=== PATIENT | female | born 1940 | race Caucasian/White ===

== ENCOUNTER 2023-08-09 17:12 | Inpatient (IN) | payer MEDICARE, OTHER ==
[~2023-08-09] VITALS: Ht 165.1 cm; Wt 55.7 kg
[2023-08-09 17:55] VITALS: PULSE 79; RESP 18; O2SAT 96
[2023-08-09 17:57] LABS: Basophils # (auto) 0.1 10 ^3/uL (0-0.2); Basophils % (auto) 0.5 % (0.0-2.0); Monocytes % (auto) 5.8 % (0.0-12.0)
[2023-08-09 17:59] LABS: Eosinophils # (auto) 0.2 10 ^3/uL (0-0.8); Eosinophils % (auto) 1.4 % (0.0-7.0); Hematocrit 43.3 % (36.0-46.0); Hemoglobin 13.8 g/dL (12.2-16.2); Lymphocytes # (auto) 9.3 10 ^3/uL (0.4-5.4); Mean Corpuscular Hemoglobin 27.1 pg (28.0-32.0); Mean Corpuscular Hgb Conc. 31.9 g/dL (32.0-36.0); Mean Corpuscular Volume 85.1 fL (80.0-100.0); Neutrophils # (auto) 6.6 10 ^3/uL (1.6-8.6); Neutrophils % (auto) 38.3 % (37.0-80.0); Nucleated Red Blood Cells % 0.2 %; Red Blood Cells 5.09 10^6/uL (4.0-5.20); Red Cell Distribution Width 19.1 % (11.8-14.3); White Blood Cell 17.3 10^3/uL (4.4-10.8)
[2023-08-09 18:12] LABS: Alanine Aminotransferase 18 U/L (7-40); Albumin 4.5 g/dL (3.2-4.8); Alkaline Phosphatase 34 U/L (46-116); Anion Gap 11 (5-15); Aspartate Aminotransferase 20 U/L (13-40); BUN/Creatinine Ratio 22.7 (10.0-20.0); Blood Urea Nitrogen 22 mg/dL (9-23); Calcium 9.9 mg/dL (8.7-10.4); Carbon Dioxide 22 mmol/L (20-30); Chloride 102 mmol/L (98-107); Glucose 103 mg/dL (74-106); INR 1.02 (0.9-1.15); Magnesium 1.5 mg/dL (1.6-2.6); Partial Thromboplastin Time 25.2 SEC (24.5-34.5); Potassium 3.7 mmol/L (3.5-5.1); Prothrombin Time 10.7 sec (9.3-11.8); Sodium 135 mmol/L (136-145)
[2023-08-09 18:13] LABS: Bilirubin, Total 0.4 mg/dL (0.2-1.0); Total Protein 6.9 g/dL (5.7-8.2)
[2023-08-09 19:30] VITALS: PULSE 76; RESP 13; O2SAT 96
[2023-08-09] MEDS ORDERED: ACETAMINOPHEN 325 MG TAB PO PRN (22:15)
[2023-08-09] MEDS ORDERED: MORPHINE SULFATE INJ 2 MG/ml SYRG IV PRN (22:15)
[2023-08-09] MEDS ORDERED: NITROGLYCERIN 0.4 MG SL TAB SL PRN (22:15)
[2023-08-09] MEDS ORDERED: DOCUSATE SOD 100 MG CAP PO PRN (22:15)
[2023-08-09] MEDS ORDERED: ONDANSETRON HCL 4 MG/2 ML VIAL IV PRN (22:15)
[2023-08-09] MEDS ORDERED: IPRATROPIUM BROM 0.5 MG/2.5ML INH SOL NEB PRN (22:30)
[2023-08-09] MEDS ORDERED: DEXTROSE (50%) 50ML SYRG IV PRN (22:30)
[2023-08-09] MEDS ORDERED: ALBUTEROL SULF 2.5 MG/0.5ML(0.5%) NEB SOLN NEB PRN (22:30)
[2023-08-09] MEDS ORDERED: METO-159 PO (22:43)
[2023-08-09] MEDS ORDERED: ATOR40TA52 PO (22:43)
[2023-08-09] MEDS ORDERED: AMLO1TAB23 PO (22:43)
[2023-08-09] MEDS ORDERED: PANT40T PO (22:43)
[2023-08-09] MEDS ORDERED: EZET-10 PO (22:43)
[2023-08-09 22:47] VITALS: BP 200/86; PULSE 80; RESP 19; TEMP 97.6; O2SAT 94
[2023-08-09] MEDS: cefTRIAXone 1GM/50ML D5W 50 ML IV ONE (23:04)
[2023-08-09] MEDS: METHOCARBAMOL 500 MG TAB PO SCH (23:05)
[2023-08-10 01:31] LABS: Urine Bacteria FEW /hpf (None Seen); Urine Blood Negative /uL (Negative); Urine Clarity Clear (Clear); Urine Color Colorless (Yellow); Urine Hyaline Cast FEW /lpf (0 - 2); Urine Protein, UAD 2+ (Negative); Urine Urobilinogen Normal (Negative); Urine WBC 9 /hpf (0 - 5); Urine pH 5.5 (5.0-8.0)
[2023-08-10] MEDS: HYDROcodone-ACET 10/325MG TAB PO PRN (04:11)
[2023-08-10 05:24] LABS: Basophils # (auto) 0.1 10 ^3/uL (0-0.2); Basophils % (auto) 0.6 % (0.0-2.0); Eosinophils # (auto) 0.2 10 ^3/uL (0-0.8); Eosinophils % (auto) 1.4 % (0.0-7.0); Hematocrit 36.9 % (36.0-46.0); Hemoglobin 11.9 g/dL (12.2-16.2); Lymphocytes # (auto) 6.7 10 ^3/uL (0.4-5.4); Lymphocytes % (auto) 50.5 % (10.0-50.0); Mean Corpuscular Hemoglobin 27.2 pg (28.0-32.0); Mean Corpuscular Hgb Conc. 32.2 g/dL (32.0-36.0); Mean Corpuscular Volume 84.4 fL (80.0-100.0); Monocytes # (auto) 0.8 10 ^3/uL (0-1.3); Monocytes % (auto) 5.7 % (0.0-12.0); Neutrophils # (auto) 5.5 10 ^3/uL (1.6-8.6); Neutrophils % (auto) 41.8 % (37.0-80.0); Nucleated Red Blood Cells % 0.1 %; Red Blood Cells 4.37 10^6/uL (4.0-5.20); Red Cell Distribution Width 18.3 % (11.8-14.3); White Blood Cell 13.3 10^3/uL (4.4-10.8)
[2023-08-10 05:47] LABS: Alanine Aminotransferase 12 U/L (7-40); Albumin 3.6 g/dL (3.2-4.8); Alkaline Phosphatase 26 U/L (46-116); Anion Gap 8 (5-15); Aspartate Aminotransferase 14 U/L (13-40); BUN/Creatinine Ratio 19.5 (10.0-20.0); Blood Urea Nitrogen 15 mg/dL (9-23); Calcium 8.6 mg/dL (8.7-10.4); Carbon Dioxide 23 mmol/L (20-30); Chloride 106 mmol/L (98-107); Glucose 144 mg/dL (74-106); Potassium 3.5 mmol/L (3.5-5.1); Sodium 137 mmol/L (136-145)
[2023-08-10 05:48] LABS: Bilirubin, Total 0.5 mg/dL (0.2-1.0); Total Protein 5.7 g/dL (5.7-8.2)
[2023-08-10 05:59] LABS: Triglycerides 145 mg/dL (< 150)
[2023-08-10 06:00] LABS: LDL Cholesterol 55 mg/dL (< 100)
[2023-08-10 06:01] LABS: Cholesterol 119 mg/dL (< 200); HDL Cholesterol 42 mg/dL (40-59)
[2023-08-10] MEDS: ACCU-CHEK COMFORT CURVE STRIP VI SCH (06:16)
[2023-08-10] MEDS: InsuLIN REG 1unit/0.01ml Soln (100units/ml) SC SCH (06:22)
[2023-08-10] MEDS: cefTRIAXone 1GM/50ML D5W 50 ML IV SCH (09:52)
[2023-08-10] MEDS: EZETIMIBE 10 MG PO SCH (10:00)
[2023-08-10] MEDS ORDERED: PATIENTS OWN MEDICATION (Metoprolol Tartrate 1 TAB) PO SCH (10:00)
[2023-08-10] MEDS ORDERED: PATIENTS OWN MEDICATION (Atorvastatin Calcium 1 TAB) PO SCH (10:00)
[2023-08-10] MEDS ORDERED: PATIENTS OWN MEDICATION (Amlodipine Besylate 1 TAB) PO SCH (10:00)
[2023-08-10 10:08] VITALS: O2SAT 97
[2023-08-10] MEDS: ATORVASTATIN 20 MG TAB PO SCH (10:25)
[2023-08-10] MEDS: METOPROLOL TARTRATE 50 MG TAB PO SCH (10:26)
[2023-08-10] MEDS: PANTOPRAZOLE 40 MG TAB PO SCH (10:26)
[2023-08-10] MEDS: amLODIPine BESYLATE 5 MG TAB PO SCH (10:27)
[2023-08-10 18:11] LABS: Basophils # (auto) 0 10 ^3/uL (0-0.2); Basophils % (auto) 0.4 % (0.0-2.0); Eosinophils # (auto) 0.1 10 ^3/uL (0-0.8); Hematocrit 37.9 % (36.0-46.0); Hemoglobin 12.2 g/dL (12.2-16.2); Lymphocytes # (auto) 5.6 10 ^3/uL (0.4-5.4); Lymphocytes % (auto) 44.8 % (10.0-50.0); Mean Corpuscular Hemoglobin 26.8 pg (28.0-32.0); Mean Corpuscular Hgb Conc. 32.3 g/dL (32.0-36.0); Monocytes # (auto) 0.7 10 ^3/uL (0-1.3); Neutrophils % (auto) 47.8 % (37.0-80.0); Nucleated Red Blood Cells % 0.1 %; Red Blood Cells 4.57 10^6/uL (4.0-5.20); Red Cell Distribution Width 19.1 % (11.8-14.3); White Blood Cell 12.5 10^3/uL (4.4-10.8)
[2023-08-10 19:20] VITALS: PULSE 85; RESP 18; O2SAT 93
[2023-08-10 22:05] VITALS: O2SAT 94
[2023-08-11] VITALS (10 sets, daily range): BP systolic 142–164; BP diastolic 62–90; PULSE 68–96; RESP 18–20; TEMP 97.4–98.2; O2SAT 94–98
[2023-08-11] MEDS: hydrALAZINE HCL 20 MG/ML VL IV ONE (00:26)
[2023-08-11] MEDS: GABAPENTIN 100 MG CAP PO ONE (00:59)
[2023-08-11] MEDS ORDERED: FLUT1AER7 (05:21)
[2023-08-11] MEDS ORDERED: METF-370 PO (05:21)
[2023-08-11] MEDS ORDERED: ALBU108A5 INH (05:21)
[2023-08-11] MEDS ORDERED: METH-1182 PO (05:21)
[2023-08-11] MEDS ORDERED: HYDR-4072 PO (05:21)
[2023-08-11] MEDS ORDERED: CLOP75TA70 PO (05:21)
[2023-08-11 06:16] LABS: Chloride 101 mmol/L (98-107); Potassium 3.4 mmol/L (3.5-5.1); Sodium 137 mmol/L (136-145)
[2023-08-11 06:17] LABS: Anion Gap 9 (5-15); Calcium 10.7 mg/dL (8.5-10.1); Carbon Dioxide 27 mmol/L (20-30)
[2023-08-11 06:22] LABS: BUN/Creatinine Ratio 14.1 (10.0-20.0); Blood Urea Nitrogen 13 mg/dL (9-23); Glucose 164 mg/dL (74-106)
[2023-08-11 08:49] LABS: White Blood Cell 16.5 10^3/uL (4.4-10.8)
[2023-08-11 08:51] LABS: Hematocrit 42.2 % (36.0-46.0); Hemoglobin 13.3 g/dL (12.2-16.2); Mean Corpuscular Hemoglobin 26.8 pg (28.0-32.0); Mean Corpuscular Hgb Conc. 31.6 g/dL (32.0-36.0); Mean Corpuscular Volume 84.8 fL (80.0-100.0); Red Blood Cells 4.97 10^6/uL (4.0-5.20); Red Cell Distribution Width 19.2 % (11.8-14.3)
[2023-08-11 09:23] LABS: Band Neutrophils % (manual) 0; Basophils % (manual) 0 (0.0-2.0); Blast Cells 0; Eosinophils % (manual) 2 (0-7); Lymphocytes % (manual) 59 (10.0-50.0); Metamyelocytes % 0; Monocytes % (manual) 4 (0-12); Myelocytes % 0; Platelet Estimate Adequate; Promyelocytes % 0; RBC Morphology Normal; Reactive Lymphocytes 6
[2023-08-11] MEDS: POTASSIUM CHL 20 Meq TABLET PO ONE (09:23)
[2023-08-11] MEDS: ASPirin 81 mg TAB PO SCH (09:24)
[2023-08-11] MEDS: PANTOPRAZOLE 40 MG TAB PO SCH (09:25)
[2023-08-11] MEDS: CLOPIDOGREL BISULFATE 75 MG TAB PO SCH (09:25)
[2023-08-12 05:00] VITALS: BP 187/80; PULSE 71; RESP 18; TEMP 98.2; O2SAT 96
[2023-08-12 06:05] LABS: Basophils # (auto) 0.1 10 ^3/uL (0-0.2); Eosinophils # (auto) 0.2 10 ^3/uL (0-0.8); Monocytes # (auto) 0.8 10 ^3/uL (0-1.3)
[2023-08-12 06:09] LABS: Basophils % (auto) 0.7 % (0.0-2.0); Eosinophils % (auto) 1.8 % (0.0-7.0); Hematocrit 38.9 % (36.0-46.0); Hemoglobin 12.5 g/dL (12.2-16.2); Lymphocytes # (auto) 6.2 10 ^3/uL (0.4-5.4); Lymphocytes % (auto) 52.1 % (10.0-50.0); Mean Corpuscular Hemoglobin 27.3 pg (28.0-32.0); Mean Corpuscular Hgb Conc. 32.2 g/dL (32.0-36.0); Mean Corpuscular Volume 84.7 fL (80.0-100.0); Monocytes % (auto) 6.8 % (0.0-12.0); Neutrophils # (auto) 4.6 10 ^3/uL (1.6-8.6); Neutrophils % (auto) 38.6 % (37.0-80.0); Nucleated Red Blood Cells % 0.2 %; Red Blood Cells 4.59 10^6/uL (4.0-5.20); Red Cell Distribution Width 18.9 % (11.8-14.3); White Blood Cell 11.8 10^3/uL (4.4-10.8)
[2023-08-12 06:20] LABS: Anion Gap 8 (5-15); Carbon Dioxide 25 mmol/L (20-30); Chloride 105 mmol/L (98-107); Potassium 3.8 mmol/L (3.5-5.1); Sodium 138 mmol/L (136-145)
[2023-08-12 06:21] LABS: Calcium 9.7 mg/dL (8.7-10.4)
[2023-08-12] MEDS: hydrALAZINE HCL 20 MG/ML VL IV ONE (06:23)
[2023-08-12 06:26] LABS: Blood Urea Nitrogen 15 mg/dL (9-23); Glucose 176 mg/dL (74-106)
[2023-08-12 06:27] LABS: Magnesium 1.6 mg/dL (1.6-2.6)
[2023-08-12] MEDS: ACETAMINOPHEN 325 MG TAB PO PRN (06:28)
[2023-08-12 08:00] VITALS: BP 116/63; PULSE 75; PULSE 87; RESP 15; TEMP 98; O2SAT 93
[2023-08-12 09:06] VITALS: BP 116/63; PULSE 87; RESP 15; TEMP 98; O2SAT 93
[2023-08-12] MEDS: MAGNESIUM OXIDE 400 MG TAB PO ONE (09:42)
[2023-08-12] MEDS: LOSARTAN POTASSIUM 25 MG TAB PO SCH (09:51)
[2023-08-12] MEDS ORDERED: CEPH500C PO (10:16)
[2023-08-12 10:34] VITALS: PULSE 83; RESP 16; O2SAT 99
[2023-08-12] MEDS: ALBUTEROL SULF 2.5 MG/0.5ML(0.5%) NEB SOLN NEB PRN (10:34)
[2023-08-12] MEDS: IPRATROPIUM BROM 0.5 MG/2.5ML INH SOL NEB PRN (10:34)
[2023-08-12 10:44] VITALS: PULSE 74; RESP 17; O2SAT 100
[2023-08-12 12:47] VITALS: BP 137/68; PULSE 67; RESP 16; TEMP 98; O2SAT 96
== END 2023-08-12 13:21 | disposition home or self-care (01) | DRG 65 ==
LOC: ER 17:12 → TELE 22:08 → TELE-WESTW 22:08
PROVIDERS: ADMIT Internal Medicine Geriatric Medicine; ATTEND Emergency Medicine
DX: I63.9 Cerebral infarction, unspecified (principal); I16.1 Hypertensive emergency; I69.351 Hemiplegia and hemiparesis following cerebral infarction affecting right dominant side; N39.0 Urinary tract infection, site not specified; D72.829 Elevated white blood cell count, unspecified; I25.10 Atherosclerotic heart disease of native coronary artery without angina pectoris; J44.9 Chronic obstructive pulmonary disease, unspecified; R29.703 NIHSS score 3; G89.29 Other chronic pain; E11.9 Type 2 diabetes mellitus without complications; M54.9 Dorsalgia, unspecified; F17.200 Nicotine dependence, unspecified, uncomplicated; E78.5 Hyperlipidemia, unspecified; H91.92 Unspecified hearing loss, left ear; I10 Essential (primary) hypertension; Z88.8 Allergy status to other drugs, medicaments and biological substances; Z91.041 Radiographic dye allergy status; Z79.02 Long term (current) use of antithrombotics/antiplatelets; Z79.82 Long term (current) use of aspirin; Z79.899 Other long term (current) drug therapy
CPT/HCPCS: 36415; 70450; 70551; 71045; 80048; 80053; 80061; 81001; 82962; 83036; 83605; 83735; 83880; 84443; 84484; 85007; 85025; 85027; 85610; 85730; 87040; 87081; 87086; 93005; 93306; 93886; 94640; 95819; 96374; 97163; G0378; J1815

== ENCOUNTER 2024-07-13 10:59 | Inpatient (IN) | payer MEDICARE, OTHER ==
[~2024-07-13] VITALS: Ht 165.1 cm; Wt 94.8 kg
[~2024-07-13 10:59] MED LIST: ALBU108A5 INH; AMLO1TAB23 PO; ATOR40TA52 PO; CEPH500C PO; CLOP75TA70 PO; EZET-10 PO; FLUT1AER7; HYDR-4072 PO; METF-370 PO; METH-1182 PO; METO-159 PO; PANT40T PO
--- NOTE | 2024-07-13 11:11 | ECG ---
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
--- NOTE | 2024-07-13 11:21 | ED.PDOC ---
History of Present Illness HPI Comments 83-year-old female presents with a chief complaint of SOB x 2 weeks with associated cough. Patient reports that she has been having SOB increasingly over the past x 2 weeks. Patient is sating at 81% on room air and does not use supplemental oxygen. Patient was placed on 2L/NC in triage. Patient is able to speak in full complete sentences at this time. Patient has no sick contacts at this time at home. No other symptoms or modifying factors present at this time. Time Seen by MD: 11:09 Primary Care Provider: Gregory JALLOH) Reviewed Notes: Nurses Notes, Medications, Allergies Allergies: Coded Allergies: Enalapril (Verified Allergy, Severe, 08/09/23) Iodine (Verified Allergy, Severe, 08/09/23) Home Meds Active Scripts Cephalexin Monohydrate (Cephalexin) 500 Mg Cap, 1 CAP PO TID, #15 CAP Prov:ANETTE SAUER MD 08/12/23 Reported Medications Fluticasone-Salmeterol (Wixela Inhub 500-50 Mcg/Dose) 1 Aer Aer 08/11/23 Clopidogrel Bisulfate (CLOPIDOGREL) 75 Mg Tab, 1 TAB PO DAILY 08/11/23 Methocarbamol (Methocarbamol) 750 Mg Tab, 1 TAB PO Q6HPRN PRN for FOR MUSCLE SPASM 08/11/23 Albuterol Sulfate (Albuterol Sulfate Hfa) 108 Mcg/Act Aer, INH 08/11/23 Metformin Hydrochloride (Metformin Hcl) 500 Mg Tab, 2 TAB PO BID 08/11/23 Hydrocodone-Acetaminophen (Hydrocodone/Acetaminophen 10-325 mg) 1 Tab Tab, 1 TAB PO Q4HP PRN for PAIN SCALE 7 THRU 10 08/11/23 Pantoprazole Sodium Sesquihydr (Pantoprazole Sodium) 40 Mg Tab, 1 TAB PO DAILY 08/09/23 Atorvastatin Calcium (ATORVASTATIN CALCIUM) 40 Mg Tab, 1 TAB PO DAILY 08/09/23 Ezetimibe (Ezetimibe) 10 Mg Tab, 1 TAB PO DAILY 08/09/23 Metoprolol Tartrate (Metoprolol Tartrate) 100 Mg Tab, 1 TAB PO BID 08/09/23 Amlodipine Besylate (Amlodipine Besylate) 10 Mg Tab, 1 TAB PO DAILY 08/09/23 Information Source: Patient Mode of Arrival: Ambulatory Severity: Moderate Timing: Weeks Duration: Since onset Prehospital treatment: None Past Medical History PAST MEDICAL HISTORY: CAD, COPD, CVA 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 Pertinent ACOUSTIC SENSOR OPERATOR History Family History Family History: Unknown Social History Smoker: Non-Smoker Alcohol: Denies ETOH Use Drugs: Denies Drug Use Lives In: Home Constitutional: denies: chills, diaphoresis, fatigue, fever, malaise, sweats, weakness, others EENTM: denies: blurred vision, double vision, ear bleeding, ear discharge, ear drainage, ear pain, ear ringing, eye pain, eye redness, hearing loss, mouth pain, mouth swelling, nasal discharge, nose bleeding, nose congestion, nose pain, photophobia, tearing, throat pain, throat swelling, voice changes, others Respiratory: reports: cough, shortness of breath; denies: hemoptysis, orthopnea, SOB at rest, SOB with excertion, stridor, wheezing, others Cardiovascular: denies: chest pain, dizzy spells, diaphoresis, Dyspnea on exertion, edema, irregular heart beat, left arm pain, lightheadedness, palpitations, PND, syncope, others Gastrointestinal: denies: abdomen distended, abdominal pain, blood streaked bowels, constipated, diarrhea, dysphagia, difficulty swallowing, hematemesis, melena, nausea, poor appetite, poor fluid intake, rectal bleeding, rectal pain, vomiting, others Genitourinary: denies: abnormal vagina bleeding, burning, dyspareunia, dysuria, flank pain, frequency, hematuria, incontinence, pain, , vagina discharge, urgency, others Neurological: denies: dizziness, fainting, headache, left sided numbness, left sided weakness, numbness, paresthesia, pre-existing deficit, right sided numbness, right sided weakness, seizure, speech problems, tingling, tremors, weakness, others Musculoskeletal: denies: back pain, gout, joint pain, joint swelling, muscle pain, muscle stiffness, neck pain, others Integumetry: denies: bruises, change in color, change in hair/nails, dryness, laceration, lesions, lumps, rash, wounds, others Allergic/Immunocompromised: denies: Difficulty Healing, Frequent Infections, Hives, Itching, others Hematologic/Lymphatic: denies: anemia, blood clots, easy bleeding, easy bruising, swollen glands, others Endocrine: denies: excessive hunger, excessive sweating, excessive thirst, excessive urination, flushing, intolerance to cold, intolerance to heat, unexplained weight gain, unexplained weight loss, others Psychiatric: denies: anxiety, bipolar disorder, depression, hopeless, panic disorder, schizophrenia, sleepless, suicidal, others All Other Systems: Reviewed and Negative Physical Exam General Appearance: Moderate Distress HEENT: Normal ENT Inspection, Pharynx Normal, TMs Normal Neck: Full Range of Motion, Non-Tender, Normal, Normal Inspection Respiratory: Chest Non-Tender, Decreased Breath Sounds, No Accessory Muscle Use, Rales, Respiratory Distress Cardiovascular: No Edema, No JVD, No Murmur, No Gallop, Normal Peripheral Pulses, Regular Rate/Rhythm Breast Exam: Deferred Gastrointestinal: No Organomegaly, Non Tender, No Pulsatile Mass, Normal Bowel Sounds, Soft Genitalia: Deferred Pelvic: Deferred Rectal: Deferred Extremities: No calf tenderness, Normal capillary refill, Normal inspection, Normal range of motion, Non-tender, No pedal edema Musculoskeletal : Apperance: Normal 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 Was a procedure done?: No EKG EKG : Pulse Rate (adult): 76 [place]: Normal Cardiac Rhythm: NSR Block: None Hypertrophy: None ST: Normal Differential Dx Considerations may include: Generalized weakness, CHF, COPD, asthma X-Ray, Labs, Meds, VS Vital Signs Date Time Temp Pulse Resp B/P (MAP) Pulse Ox O2 Delivery O2 Flow Rate FiO2 07/13/24 12:04 Nasal Cannula* 2 28 07/13/24 11:59 72 22 193/83 (119) 94 07/13/24 11:59 18 93 Nasal Cannula* 2 28 07/13/24 11:59 72 18 92 Nasal Cannula 07/13/24 11:21 76 07/13/24 11:07 76 07/13/24 11:05 98.2 77 28 202/74 (116) 82 209/75 (119) Lab Test 07/13/24 12:03 07/13/24 11:49 Range/Units Urine Color Yellow Yellow Urine Clarity Clear Clear Urine pH 6.0 5.0-9.0 Urine Specific [place] 1.028 1.001-1.035 Urine Protein 3+ H Negative Urine Ketones 1+ H Negative Urine Blood Negative Negative /uL Urine Nitrite Negative Negative Urine Bilirubin Negative Negative Urine Urobilinogen Normal Negative mg/dL Urine Leukocyte Esterase 1+ Negative /uL Urine RBC 2 0 - 4 /hpf Urine Microscopic WBC 3 0-5 /HPF Urine Squamous Epithelial Cells Few <5 /hpf Urine Bacteria None seen None Seen /hpf Urine Glucose Normal Normal mg/dL White Blood Count 9.9 4.4-10.8 10^3/uL Red Blood Count 3.81 L 4.0-5.20 10^6/uL Hemoglobin 9.3 L 12.2-16.2 g/dL Hematocrit 30.0 L 36.0-46.0 % Mean Corpuscular Volume 78.7 L 80.0-100.0 fL Mean Corpuscular Hemoglobin 24.4 L 28.0-32.0 pg Mean Corpuscular Hemoglobin Concent 31.0 L 32.0-36.0 g/dL Red Cell Distribution Width 18.7 H 11.8-14.3 % Platelet Count 311 140-450 10^3/uL Mean Platelet Volume 5.9 L 6.9-10.8 fL Neutrophils (%) (Auto) 73.8 37.0-80.0 % Lymphocytes (%) (Auto) 19.7 10.0-50.0 % Monocytes (%) (Auto) 5.9 0.0-12.0 % Eosinophils (%) (Auto) 0.2 0.0-7.0 % Basophils (%) (Auto) 0.4 0.0-2.0 % Neutrophils # (Auto) 7.3 1.6-8.6 10 ^3/uL Lymphocytes # (Auto) 1.9 0.4-5.4 10 ^3/uL Monocytes # (Auto) 0.6 0-1.3 10 ^3/uL Eosinophils # (Auto) 0 0-0.8 10 ^3/uL Basophils # (Auto) 0 0-0.2 10 ^3/uL Nucleated Red Blood Cells 0.2 % Sodium Level 131 L 136-145 mmol/L Potassium Level 4.4 3.5-5.1 mmol/L Chloride Level 101 98-107 mmol/L Carbon Dioxide Level 22 20-31 mmol/L Anion Gap 8 5-15 Blood Urea Nitrogen 15 9-23 mg/dL Creatinine 0.71 0.550-1.02 mg/dL Glomerular Filtration Rate Calc 85 >90 mL/min BUN/Creatinine Ratio 21.1 H 10.0-20.0 Serum Glucose 171 H 74-106 mg/dL Calcium Level 10.1 8.7-10.4 mg/dL Troponin I High Sensitivity 6 </=34 ng/L B-Type Natriuretic Peptide 688.37 0-100 pg/mL Current Medications Medications (Trade) Dose Ordered Sig/Ronaldo Route Start Time Stop Time Status Last Admin Methylprednisolone Sodium Succinate (Solu Medrol) 125 mg ONCE ONCE IV 07/13/24 11:30 07/13/24 11:36 DC 07/13/24 11:57 Ipratropium [place] (Atrovent Medneb) 1 mg ONCE ONCE N 07/13/24 11:30 07/13/24 11:36 DC 07/13/24 11:59 Albuterol (Ventolin Medneb) 10 mg ONCE ONCE N 07/13/24 11:30 07/13/24 11:36 DC 07/13/24 11:59 Chest X-Ray Impression: Cardiomegaly with CHF. Moderate right pleural effusion. IV Hep-Lock was established The patient was being given Lasix 40 mg IV push The patient was also given Solu-Medrol 125 mg IV push for the COPD The patient was given an albuterol and Atrovent treatment. The patient's CBC shows anemia with a hemoglobin of 9.3 and hematocrit of 30 The chemistry panel is within normal limits The BNP is 688.37 At this time, the patient was being admitted A cardiology consult will be obtained. The urine test also shows a UTI the patient will be started on antibiotics at this time Images Reviewed?: Images reviewed and evaluated by me Time of 1ST Reevaluation: 11:39 Reevaluation 1ST: Unchanged Patient Education/Counseling: Diagnosis, Treatment, Prognosis Family Education/Counseling: Diagnosis, Treatment, Prognosis Departure 1 Departure Time of Disposition: 13:52 Impression: Primary Impression: Acute on chronic diastolic heart failure Additional Impression: UTI (urinary tract infection) Qualified Codes: N30.00 - Acute cystitis without hematuria Disposition: ADMITTED INPATIENT Admit to: [facility] Condition: Fair Critical Care Note Critical Care Time?: No Stability Stability form required: Yes Unstable for transfer: Telemetry monitoring (Telemetry monitoring required), ED Physician Assesment (Clinical assesment) Heart Score Heart Score: Heart Score Response (Comments) Value History Moderate Suspicious 1 EKG Normal 0 Age >65 2 Risk Factors >3 or Hx ASHD 2 Troponin Normal limit 0 Total 5 I personally scribed for MARTINEZ MONET MD ([email or web address]) on 07/13/24 at 11:21. Electronically submitted by Gibran Ibrahim ([email or web address]). I personally scribed for MARTINEZ MONET MD ([email or web address]) on 07/13/24 at 12:07. Electronically submitted by Gibran Ibrahim ([email or web address]). MARTINEZ MONET MD Jul 13, 2024 11:21
--- NOTE | 2024-07-13 11:46 | DVH ---
XY CHEST TWO VIEWS ROUTINE CLINICAL HISTORY: sob COMPARISON: None TECHNIQUE: Frontal and lateral view of the chest was obtained FINDINGS: Lines and Tubes: None Lungs: No focal consolidation. Pleura: Moderate right pleural effusion. Cardiomediastinal contours:Cardiomegaly. Bones: No acute osseous abnormality. IMPRESSION: Cardiomegaly with CHF. Moderate right pleural effusion.
[2024-07-13] MEDS: methylPREDNISolone SOD SUCC 125 MG/2 ML VL IV ONE (11:57)
[2024-07-13] MEDS: ALBUTEROL SULF 2.5 MG/0.5ML(0.5%) NEB SOLN HHN ONE (11:59)
[2024-07-13] MEDS: IPRATROPIUM BROM 0.5 MG/2.5ML INH SOL HHN ONE (11:59)
[2024-07-13 12:04] LABS: Eosinophils # (auto) 0 10 ^3/uL (0-0.8); Eosinophils % (auto) 0.2 % (0.0-7.0)
[2024-07-13 12:06] LABS: Basophils # (auto) 0 10 ^3/uL (0-0.2); Basophils % (auto) 0.4 % (0.0-2.0); Hemoglobin 9.3 g/dL (12.2-16.2); Lymphocytes # (auto) 1.9 10 ^3/uL (0.4-5.4); Lymphocytes % (auto) 19.7 % (10.0-50.0); Mean Corpuscular Hemoglobin 24.4 pg (28.0-32.0); Mean Corpuscular Volume 78.7 fL (80.0-100.0); Monocytes # (auto) 0.6 10 ^3/uL (0-1.3); Monocytes % (auto) 5.9 % (0.0-12.0); Neutrophils # (auto) 7.3 10 ^3/uL (1.6-8.6); Neutrophils % (auto) 73.8 % (37.0-80.0); Nucleated Red Blood Cells % 0.2 %; Platelet Count (auto) 311 10^3/uL (140-450); Red Blood Cells 3.81 10^6/uL (4.0-5.20); Red Cell Distribution Width 18.7 % (11.8-14.3); White Blood Cell 9.9 10^3/uL (4.4-10.8)
[2024-07-13 12:22] LABS: Anion Gap 8 (5-15); Carbon Dioxide 22 mmol/L (20-31); Chloride 101 mmol/L (98-107); Potassium 4.4 mmol/L (3.5-5.1)
[2024-07-13 12:23] LABS: Calcium 10.1 mg/dL (8.7-10.4)
[2024-07-13 12:28] LABS: BUN/Creatinine Ratio 21.1 (10.0-20.0); Blood Urea Nitrogen 15 mg/dL (9-23)
[2024-07-13 12:30] LABS: Glucose 171 mg/dL (74-106); Sodium 131 mmol/L (136-145)
[2024-07-13 12:56] LABS: Urine Bacteria None Seen /hpf (None Seen)
[2024-07-13 13:20] LABS: Urine Blood Negative /uL (Negative); Urine Clarity Clear (Clear); Urine Color Yellow (Yellow); Urine Protein, UAD 3+ (Negative); Urine Specific Gravity 1.028 (1.001-1.035); Urine Squamous Epithelial Cell FEW /hpf (<5); Urine Urobilinogen Normal (Negative); Urine WBC 3 /HPF (0-5)
[2024-07-13] MEDS: FUROSEMIDE 40 MG/4 ML VIAL IV ONE (16:49)
[2024-07-13] MEDS: cefTRIAXone 1GM/50ML D5W 50 ML IV ONE (16:49)
[2024-07-13] MEDS: FUROSEMIDE 40 MG/4 ML VIAL IV SCH (18:03)
[2024-07-13] MEDS: HYDROcodone-ACET 10/325MG TAB PO ONE (19:20)
[2024-07-13 20:37] VITALS: PULSE 73; RESP 20; O2SAT 98
[2024-07-13] MEDS ORDERED: DEXTROSE (50%) 50ML SYRG IV PRN (21:30)
[2024-07-13] MEDS ORDERED: ACETAMINOPHEN 325 MG TAB PO PRN (21:30)
[2024-07-13] MEDS ORDERED: ONDANSETRON HCL 4 MG/2 ML VIAL IV PRN (21:30)
[2024-07-13] MEDS ORDERED: DOCUSATE SOD 100 MG CAP PO PRN (21:30)
[2024-07-13] MEDS ORDERED: ALBUTEROL SULF 2.5 MG/0.5ML(0.5%) NEB SOLN NEB PRN (21:30)
[2024-07-13] MEDS: FAMOTIDINE (10MG/ML) 2ML VL IV SCH (22:21)
[2024-07-13] MEDS: methylPREDNISolone SOD SUCC 40 MG/ML VL IV SCH (22:21)
[2024-07-13] MEDS: SODIUM CHLOR 0.9% PF (SALINE LOCK) 10ML VIAL/SYR IV SCH (22:22)
[2024-07-13] MEDS: CARVEDILOL 3.125 MG TAB PO SCH (22:22)
[2024-07-13] MEDS: ACCU-CHEK COMFORT CURVE STRIP VI SCH (22:23)
[2024-07-13] MEDS: InsuLIN REG 1unit/0.01ml Soln (100units/ml) SC SCH (22:35)
[2024-07-13] MEDS ORDERED: NITROGLYCERIN 0.4 MG SL TAB SL PRN (23:00)
[2024-07-13] MEDS ORDERED: MORPHINE SULFATE INJ 2 MG/ml SYRG IV PRN (23:00)
--- NOTE | 2024-07-13 23:00 | DVHHP2 ---
History of Present Illness Reason for Visit: Acute on chronic diastolic heart failure History of Present Illness The patient is a 83-year-old female with past medical history of Coronary artery disease, COPD, and CVA who presented to [facility] ED with complaint of shortness of breaths for the past 2 weeks. Patient reports symptoms progressively get worse with persistent cough, increased work of breathing, SOB at rest, getting worse today that prompted this visit. Patient was seen and evaluated in the ED, laboratory data shows WBC 9.9, hemoglobin 9.3, hematocrit 30.0, platelets 311, sodium 131, potassium 4.4, BUN 15, creatinine 0.71, GFR 85, glucose 171, BNP 688.37, troponin 6. Urinalysis positive for urinary tract infection. Patient was started on IV Lasix, please see medication orders section in the computer. On my assessment, patient denied chest pain, no headache, no dizziness, no diaphoresis, currently on oxygen, no nausea, no vomiting, no fever, no chills. Patient was admitted for further evaluation and medical management. Past Medical History CAD, COPD, CVA Past Surgical History Denies all surgeries Family History Reviewed, noncontributory to the management of this case. Past Social History The patient lives at home, denies smoking, alcohol or illicit drugs abuse. Review of Systems Constitutional: Yes: Weakness; No: Fever, Chills, Sweats, Malaise, Other Eyes: No: Pain, Vision change, Conjunctivae inflammation, Eyelid inflammation, Other, Redness ENT: No: Ear pain, Ear discharge, Nose pain, Nose discharge, Nose congestion, Mouth pain, Mouth swelling, Throat pain, Throat swelling, Other Respiratory: Cough, Shortness of breath; No: Dry, SOB with excertion, Wheezing, Hemoptysis, Pleuritic Pain, Sputum, Wheezing, Other Cardiovascular: No: Chest Pain, Palpitations, Orthopnea, Paroxysmal Noc. Dyspnea, Edema, Lt Headedness, Other Gastrointestinal: No: Nausea, Vomiting, Abdominal Pain, Diarrhea, Constipation, Melena, Hematochezia, Other Genitourinary: No Dysuria, No Frequency, No Incontinence, No Hematuria, No Retention, No Other Musculoskeletal: No: other, neck pain, shoulder pain, arm pain, back pain, hand pain, leg pain, foot pain Skin: No: Rash, Lesions, Jaundice, Bruising, Other Neurological: No: Weakness, Numbness, Incoordination, Change in speech, Confusion, Seizures, Other Allergies: Coded Allergies: Enalapril (Verified Allergy, Severe, 08/09/23) Iodine (Verified Allergy, Severe, 08/09/23) Medications Current Medications Medications Dose Ordered Sig/Ronaldo Route Start Time Stop Time Status Last Admin Dose Admin Furosemide 40 mg BIDD IV 07/13/24 18:00 07/13/24 18:03 40 MG Clopidogrel Bisulfate 75 mg DAILY PO 07/14/24 10:00 Ceftriaxone Sodium 50 ml @ 100 mls/hr DAILY@09 IV 07/14/24 09:00 Albuterol 2.5 mg Q4HPRN PRN NEB 07/13/24 21:30 Methylprednisolone Sodium Succinate 40 mg BID IV 07/13/24 22:00 07/13/24 22:21 40 MG Famotidine 20 mg DAILY IV 07/13/24 22:00 07/13/24 22:21 20 MG Amlodipine Besylate 5 mg DAILY PO 07/14/24 10:00 Carvedilol 6.25 mg Q12HR PO 07/13/24 22:00 07/13/24 22:22 6.25 MG Diagnostic Test (Pha) 1 strip ACHS 07/13/24 22:00 07/13/24 22:23 1 STRIP Insulin Human Regular HS SC 07/13/24 22:00 07/13/24 22:35 4 UNITS Insulin Human Regular AC SC 07/14/24 07:00 Dextrose 50 ml UD PRN IV 07/13/24 21:30 Sodium Chloride 10 ml Q8HR IV 07/13/24 22:00 07/13/24 22:22 10 ML Acetaminophen/ Hydrocodone Bitart 1 tab Q4HP PRN PO 07/13/24 21:30 Ondansetron HCl 4 mg Q4HP PRN IV 07/13/24 21:30 Docusate Sodium 100 mg BIDPRN PRN PO 07/13/24 21:30 Acetaminophen 650 mg Q6HP PRN PO 07/13/24 21:30 Exam Vital Signs Vital Signs Date Time Temp Pulse Resp B/P (MAP) Pulse Ox O2 Delivery O2 Flow Rate FiO2 07/13/24 22:22 76 142/58 07/13/24 20:37 20 98 Nasal Cannula* 2 28 07/13/24 20:11 98.0 98.0 General Appearance: Alert, Oriented X3, Cooperative, No acute distress HEENT: Atraumatic, PERRLA, EOMI, Mucous membr. moist/pink Respiratory: Normal air movement, Other (Diminished breath sounds) Cardiovascular: Regular rate, Normal S1, Normal S2, No murmurs Abdominal: Normal bowel sounds, Soft, No tenderness, No hepatospenomegaly, No masses Extremities: No clubbing, No cyanosis, No edema, Normal pulses, No tendernes s/swelling Skin: No rashes, No breakdown, No significant lesion Neuro: Normal speech, Normal tone, Sensation intact, Cranial nerves 3-12 NL, Reflexes 2+, Other (Generalized weakness) Psych/Mental Status: Mental status NL, Mood NL Labs/Xrays Labs Test 07/13/24 22:15 07/13/24 12:03 07/13/24 11:49 Range/Units POC Glucose 209 H 70-106 mg/dl Urine Color Yellow Yellow Urine Clarity Clear Clear Urine pH 6.0 5.0-9.0 Urine Specific [place] 1.028 1.001-1.035 Urine Protein 3+ H Negative Urine Ketones 1+ H Negative Urine Blood Negative Negative /uL Urine Nitrite Negative Negative Urine Bilirubin Negative Negative Urine Urobilinogen Normal Negative mg/dL Urine Leukocyte Esterase 1+ Negative /uL Urine RBC 2 0 - 4 /hpf Urine Microscopic WBC 3 0-5 /HPF Urine Squamous Epithelial Cells Few <5 /hpf Urine Bacteria None seen None Seen /hpf Urine Glucose Normal Normal mg/dL White Blood Count 9.9 4.4-10.8 10^3/uL Red Blood Count 3.81 L 4.0-5.20 10^6/uL Hemoglobin 9.3 L 12.2-16.2 g/dL Hematocrit 30.0 L 36.0-46.0 % Mean Corpuscular Volume 78.7 L 80.0-100.0 fL Mean Corpuscular Hemoglobin 24.4 L 28.0-32.0 pg Mean Corpuscular Hemoglobin Concent 31.0 L 32.0-36.0 g/dL Red Cell Distribution Width 18.7 H 11.8-14.3 % Platelet Count 311 140-450 10^3/uL Mean Platelet Volume 5.9 L 6.9-10.8 fL Neutrophils (%) (Auto) 73.8 37.0-80.0 % Lymphocytes (%) (Auto) 19.7 10.0-50.0 % Monocytes (%) (Auto) 5.9 0.0-12.0 % Eosinophils (%) (Auto) 0.2 0.0-7.0 % Basophils (%) (Auto) 0.4 0.0-2.0 % Neutrophils # (Auto) 7.3 1.6-8.6 10 ^3/uL Lymphocytes # (Auto) 1.9 0.4-5.4 10 ^3/uL Monocytes # (Auto) 0.6 0-1.3 10 ^3/uL Eosinophils # (Auto) 0 0-0.8 10 ^3/uL Basophils # (Auto) 0 0-0.2 10 ^3/uL Nucleated Red Blood Cells 0.2 % Sodium Level 131 L 136-145 mmol/L Potassium Level 4.4 3.5-5.1 mmol/L Chloride Level 101 98-107 mmol/L Carbon Dioxide Level 22 20-31 mmol/L Anion Gap 8 5-15 Blood Urea Nitrogen 15 9-23 mg/dL Creatinine 0.71 0.550-1.02 mg/dL Glomerular Filtration Rate Calc 85 >90 mL/min BUN/Creatinine Ratio 21.1 H 10.0-20.0 Serum Glucose 171 H 74-106 mg/dL Calcium Level 10.1 8.7-10.4 mg/dL Troponin I High Sensitivity 6 </=34 ng/L B-Type Natriuretic Peptide 688.37 0-100 pg/mL PATIENT: JUAN MCPHERSON ACCT: [id number] UNIT: [id number] : 1940 LOC: ER ROOM / BED: / AGE / SEX: 83 / F ADM STATUS: REG ER SERVICE [id number] ORDERING PHYSICIAN: MARTINEZ MONET MD PROCEDURE(s): CXR2 - CHEST TWO VIEWS ROUTINE REASON: sob ORDER NUMBER(s): [id number], ACCESSION NUMBER(s): [id number] XY CHEST TWO VIEWS ROUTINE CLINICAL HISTORY: sob COMPARISON: None TECHNIQUE: Frontal and lateral view of the chest was obtained FINDINGS: Lines and Tubes: None Lungs: No focal consolidation. Pleura: Moderate right pleural effusion. Cardiomediastinal contours:Cardiomegaly. Bones: No acute osseous abnormality. IMPRESSION: Cardiomegaly with CHF. Moderate right pleural effusion. Assessment/Plan Assessment/Plan Acute on chronic diastolic heart failure UTI (urinary tract infection) Acute cystitis without hematuria Diabetes mellitus with hyperglycemia Plan 1. Admit to telemetry unit 2. Breathing treatment 3. Pain control management 4. IV antibiotic management 5. Management of fluids and electrolytes 6. Consultation for hospitalist/cardiology 7. Diagnostic test chest x-ray 8. DVT prophylaxis-on aspirin 9. Repeat labs CBC, CMP in a.m. 10. Home medication reviewed and reconciled 11. Continue with current medical management 12. Treatment plan discussed with patient and RN. Patient verbalized understanding. Plan discussed with: Patient, Other (RN) My Orders Orders - FELISHA MCCLENDON DNP Procedure Category Date Status Time * Cardiology Consult CONS 07/13/24 Transmitted 21:22 Clopidogrel Bisulfate PHA 07/14/24 In Process (Plavix) 10:00 Methylprednisolone PHA 07/13/24 In Process Sod Succ (Solu Medrol 22:00 Famotidine Injection PHA 07/13/24 In Process (Pepcid Injection) 22:00 Amlodipine Tablet PHA 07/14/24 In Process (Norvasc Tablet) 10:00 Type And Screen BBK 07/13/24 In Process 21:22 Carvedilol Tablet PHA 07/13/24 In Process (Coreg Tablet) 22:00 Consistent DIET 07/14/24 Transmitted Carb(Ccho)Diabetes Breakfast Glucose Blood PHA 07/13/24 In Process (Accu-Chek Comfort 22:00 Insulin R (Human) PHA 07/13/24 In Process (Insulin R) 22:00 Insulin R (Human) PHA 07/14/24 In Process (Insulin R) 07:00 Dextrose 50% Syringe PHA 07/13/24 In Process 21:30 Allergies EPIFANIO 07/13/24 In Process 21:22 Code Status CODE 07/13/24 Transmitted 21:22 Sodium Chloride Lock PHA 07/13/24 In Process (Saline Lock Ns) 22:00 Oxygen Per Hour RT 07/13/24 Transmitted 21:22 Hydrocodone-Acet PHA 07/13/24 In Process 5/325mg Tab ([place] 21:30 Ondansetron Hcl PHA 07/13/24 In Process (Zofran) 21:30 Docusate Sodium PHA 07/13/24 In Process Capsule (Colace 21:30 Complete Blood Count LAB 07/14/24 Verified 04:00 Comprehensive LAB 07/14/24 Verified Metabolic Panel 04:00 Echo 2d Mode Cardiac US 07/13/24 Logged DOP 21:22 Condition: Serious EPIFANIO 07/13/24 In Process 21:22 Acetaminophen Tablet PHA 07/13/24 In Process (Tylenol Tablet) 21:30 Bedrest With Bathroom EPIFANIO 07/13/24 In Process Privileg 21:22 Sequential EPIFANIO 07/13/24 In Process Compression Device Ceftriaxone 1gm/50ml PHA 07/14/24 In Process D5w (Rocephin) 09:00 Albuterol Medneb PHA 07/13/24 In Process (Ventolin Medneb) 21:30 Clarification Of ORDERS 07/13/24 Transmitted Order: 21:45 Admit ADMIT 07/13/24 Verified 22:58 Nitroglycerin [facility] 07/13/24 Verified Sublingual (Ntrostat 23:00 Morphine Sulfate [facility] 07/13/24 Verified Injection 23:00 Notify Of Changes [facility] 07/13/24 Verified From Base 22:58 Overlock Waistline Joiner For [facility] 07/13/24 Verified 24 Hours 22:58 Emergency Dysrhythmia [facility] 07/13/24 Verified Protocol 22:58 Rhythm Strips Once [facility] 07/13/24 Verified Every Shift 22:58 Oxygen By Nasal RT 07/13/24 Verified Cannula 22:58 Problem List: (1) Acute on chronic diastolic heart failure (2) Acute cystitis without hematuria (3) UTI (urinary tract infection) (4) Diabetes mellitus with hyperglycemia Date of Service: Jul 13, 2024 Billing Provider: FELISHA MCCLENDON DNP Common Visit Codes: [id number] INP/OBS CARE (HIGH) FELISHA MCCLENDON DNP Jul 13, 2024 23:00
[2024-07-14] VITALS (12 sets, daily range): BP systolic 121–173; BP diastolic 55–69; PULSE 64–102; RESP 16–20; TEMP 97.7–98; O2SAT 92–98
[2024-07-14] MEDS: hydrALAZINE HCL 20 MG/ML VL IV PRN (03:40)
[2024-07-14 05:53] LABS: Basophils # (auto) 0 10 ^3/uL (0-0.2); Basophils % (auto) 0.2 % (0.0-2.0); Eosinophils # (auto) 0 10 ^3/uL (0-0.8); Hematocrit 28.2 % (36.0-46.0); Hemoglobin 8.8 g/dL (12.2-16.2); Lymphocytes # (auto) 1.3 10 ^3/uL (0.4-5.4); Mean Corpuscular Hemoglobin 23.9 pg (28.0-32.0); Mean Corpuscular Hgb Conc. 31.3 g/dL (32.0-36.0); Mean Corpuscular Volume 76.6 fL (80.0-100.0); Monocytes # (auto) 0.5 10 ^3/uL (0-1.3); Monocytes % (auto) 7.1 % (0.0-12.0); Neutrophils # (auto) 5.1 10 ^3/uL (1.6-8.6); Neutrophils % (auto) 73.7 % (37.0-80.0); Nucleated Red Blood Cells % 0.2 %; Platelet Count (auto) 282 10^3/uL (140-450); Red Blood Cells 3.68 10^6/uL (4.0-5.20); Red Cell Distribution Width 18.3 % (11.8-14.3); White Blood Cell 6.9 10^3/uL (4.4-10.8)
[2024-07-14 06:10] LABS: Alanine Aminotransferase 10 U/L (7-40); Albumin 4.4 g/dL (3.2-4.8); Anion Gap 10 (5-15); BUN/Creatinine Ratio 23.4 (10.0-20.0); Bilirubin, Total 0.3 mg/dL (0.2-1.0); Blood Urea Nitrogen 22 mg/dL (9-23); Calcium 9.3 mg/dL (8.7-10.4); Carbon Dioxide 22 mmol/L (20-31); Chloride 102 mmol/L (98-107); Potassium 4.3 mmol/L (3.5-5.1); Total Protein 6.5 g/dL (5.7-8.2)
[2024-07-14] MEDS: InsuLIN REG 1unit/0.01ml Soln (100units/ml) SC SCH (06:10)
[2024-07-14 06:15] LABS: Alkaline Phosphatase 29 U/L (46-116); Aspartate Aminotransferase 9 U/L (13-40); Glucose 198 mg/dL (74-106); Sodium 134 mmol/L (136-145)
[2024-07-14 08:53] LABS: Magnesium 1.7 mg/dL (1.6-2.6)
[2024-07-14] MEDS: cefTRIAXone 1GM/50ML D5W 50 ML IV SCH (09:00)
[2024-07-14] MEDS: amLODIPine BESYLATE 5 MG TAB PO SCH (09:07)
[2024-07-14] MEDS: CLOPIDOGREL BISULFATE 75 MG TAB PO SCH (09:08)
[2024-07-14] MEDS: HYDROcodone-ACET 5/325MG TAB PO PRN (10:12)
--- NOTE | 2024-07-14 11:35 | DVHINCON2 ---
Date Seen: Jul 14, 2024 Referring Physician ALPHONSO Kulkarni Reason for Consultation CHF exacerbation History of Present Illness This is an 83-year-old female patient who presents to emergency room with chief complaint of shortness of breath for approximately three weeks. The patient reports dyspnea on exertion as well as orthopnea. She comes to the emergency room for further evaluation. Cardiology has now been consulted for CHF exacerbation. The patient denies any previous history of CHF. Initial twelve lead electrocardiogram reveals normal sinus rhythm with baseline wander. Initial troponin level was negative. Initial BNP level of 688.37pg/mL. Significant past medical history includes hypertension, hyperlipidemia, right carotid endarterectomy, peripheral vascular disease status post right carotid stent (on Plavix and aspirin), mitral valve regurgitation, COPD, CVA, type 2 diabetes mellitus, and chronic back pain. The patient reports that she sees a rn occupational health in the outpatient setting and has been following them regarding her mitral valve regurgitation. Past Medical History Past medical history reviewed. No other significant than mentioned above. Past Surgical History Two back surgeries Hysterectomy in 1968 Cholecystectomy in 2004 Right carotid endarterectomy and stent placement Family History: FH: cancer G8 MOTHER FH: tuberculosis G8 FATHER Family History Family history reviewed. Social History Patient has a 20 pack-year history quit smoking in 2011 Patient denies any illicit drug use Patient denies any alcohol use Allergies: Coded Allergies: Enalapril (Verified Allergy, Severe, 08/09/23) Iodine (Verified Allergy, Severe, 08/09/23) Home Meds Active Scripts Cephalexin Monohydrate (Cephalexin) 500 Mg Cap, 1 CAP PO TID, #15 CAP Prov:ANETTE SAUER MD 08/12/23 Reported Medications Fluticasone-Salmeterol ([place]ixela Inhub 500-50 Mcg/Dose) 1 Aer Aer 08/11/23 Clopidogrel Bisulfate (CLOPIDOGREL) 75 Mg Tab, 1 TAB PO DAILY 08/11/23 Methocarbamol (Methocarbamol) 750 Mg Tab, 1 TAB PO Q6HPRN PRN for FOR MUSCLE SPASM 08/11/23 Albuterol Sulfate (Albuterol Sulfate Hfa) 108 Mcg/Act Aer, INH 08/11/23 Metformin Hydrochloride (Metformin Hcl) 500 Mg Tab, 2 TAB PO BID 08/11/23 Hydrocodone-Acetaminophen (Hydrocodone/Acetaminophen 10-325 mg) 1 Tab Tab, 1 TAB PO Q4HP PRN for PAIN SCALE 7 THRU 10 08/11/23 Pantoprazole Sodium Sesquihydr (Pantoprazole Sodium) 40 Mg Tab, 1 TAB PO DAILY 08/09/23 Atorvastatin Calcium (ATORVASTATIN CALCIUM) 40 Mg Tab, 1 TAB PO DAILY 08/09/23 Ezetimibe (Ezetimibe) 10 Mg Tab, 1 TAB PO DAILY 08/09/23 Metoprolol Tartrate (Metoprolol Tartrate) 100 Mg Tab, 1 TAB PO BID 08/09/23 Amlodipine Besylate (Amlodipine Besylate) 10 Mg Tab, 1 TAB PO DAILY 08/09/23 Home Meds Home medications reviewed. Current Medications Current Medications Medications (Trade) Dose Ordered Sig/Ronaldo Route PRN Reason Start Time Stop Time Status Last Admin Furosemide (Lasix Injection) 40 mg BIDD IV 07/13/24 18:00 07/14/24 05:31 Clopidogrel Bisulfate (Plavix) 75 mg DAILY PO 07/14/24 10:00 07/14/24 09:08 Ceftriaxone Sodium 50 ml @ 100 mls/hr DAILY@09 IV 07/14/24 09:00 07/14/24 09:00 Albuterol (Ventolin Medneb) 2.5 mg Q4HPRN PRN NEB SHORTNESS OF BREATH 07/13/24 21:30 Methylprednisolone Sodium Succinate (Solu Medrol) 40 mg BID IV 07/13/24 22:00 07/14/24 09:00 Famotidine (Pepcid Injection) 20 mg DAILY IV 07/13/24 22:00 07/14/24 09:08 Amlodipine Besylate (Norvasc Tablet) 5 mg DAILY PO 07/14/24 10:00 07/14/24 09:07 Carvedilol (Coreg Tablet) 6.25 mg Q12HR PO 07/13/24 22:00 07/14/24 09:07 Diagnostic Test (Pha) (Accu-Chek Comfort Curve T) 1 strip ACHS 07/13/24 22:00 07/14/24 06:11 Insulin Human Regular (InsuLIN R) HS SC 07/13/24 22:00 07/13/24 22:35 Insulin Human Regular (InsuLIN R) AC SC 07/14/24 07:00 07/14/24 06:10 Dextrose 50 ml UD PRN IV Blood Sugar LESS THAN 60 07/13/24 21:30 Sodium Chloride (Saline Lock Ns) 10 ml Q8HR IV 07/13/24 22:00 07/14/24 05:32 Acetaminophen/ Hydrocodone Bitart ([place] 5/325MG Tab) 1 tab Q4HP PRN PO MODERATE PAIN (4-6 PAIN SCALE) 07/13/24 21:30 07/14/24 10:12 Ondansetron HCl (Zofran) 4 mg Q4HP PRN IV NAUSEA / VOMITING 07/13/24 21:30 Docusate Sodium (Colace Capsule) 100 mg BIDPRN PRN PO FOR CONSTIPATION 07/13/24 21:30 Acetaminophen (Tylenol Tablet) 650 mg Q6HP PRN PO PAIN SCALE 1-3 OR TEMP>100.4 07/13/24 21:30 Nitroglycerin (Ntrostat Sublingual) 0.4 mg Q5MINP PRN SL FOR CHEST PAIN 07/13/24 23:00 Morphine Sulfate 2 mg Q30M PRN IV FOR CHEST PAIN 07/13/24 23:00 Hydralazine HCl (Apresoline Injection) 10 mg Q6HP PRN IV SBP>150 07/14/24 03:30 07/14/24 03:40 Review of Systems Constitutional: No symptom reported Ears, Nose, & Throat: No symptom reported Eyes: No symptom reported Neurological: No symptoms reported Pulmonary/Respiratory: Shortness of breath Cardiovascular: No symptom reported Gastrointestinal: No symptom reported Genitourinary: No symptom reported Musculoskeletal: No symptom reported Skin: No symptom reported Psychiatric: No symptom reported Endocrine: No symptom reported Hematologic/Lymphatic: No symptom reported Vital Signs Vital Signs Date Time Temp Pulse Resp B/P (MAP) Pulse Ox O2 Delivery O2 Flow Rate FiO2 07/14/24 10:00 92 Nasal Cannula 4.0 07/14/24 10:00 36 07/14/24 09:07 91 131/55 07/14/24 09:00 97.7 18 97.7 Physical Exam General Appearance: Cooperative. Well-developed. Well-nourished. No acute distress. Pulmonary/Respiratory: Clear, bilateral breaths sounds. Cardiovascular/Chest: Regular rate and rhythm. Peripheral Pulses: 2+ Radial (R). 2+ Radial (L). 2+ Pedal (R). 2+ Pedal (L) Abdominal Exam: Normal bowel sounds. Ankle Exam: Nonpitting bilateral ankle edema Lower extremities: Nonpitting feet edema Neuro/Mental Status: A/OX4, coherent. Thoughts/Psych: Normal thought pattern. Appropriate mood and affect. Good judgment and insight. Appearance: No acute distress. Skin Exam: Normal inspection. Normal color. Warm and dry. Labs/Diagnostic Data Labs Test 07/14/24 05:38 07/14/24 05:30 07/13/24 12:03 07/13/24 11:49 Range/Units POC Glucose 191 H 70-106 mg/dl White Blood Count 6.9 # 4.4-10.8 10^3/uL Red Blood Count 3.68 L 4.0-5.20 10^6/uL Hemoglobin 8.8 L 12.2-16.2 g/dL Hematocrit 28.2 L 36.0-46.0 % Mean Corpuscular Volume 76.6 L 80.0-100.0 fL Mean Corpuscular Hemoglobin 23.9 L 28.0-32.0 pg Mean Corpuscular Hemoglobin Concent 31.3 L 32.0-36.0 g/dL Red Cell Distribution Width 18.3 H 11.8-14.3 % Platelet Count 282 140-450 10^3/uL Mean Platelet Volume 6.0 L 6.9-10.8 fL Neutrophils (%) (Auto) 73.7 37.0-80.0 % Lymphocytes (%) (Auto) 19.0 10.0-50.0 % Monocytes (%) (Auto) 7.1 0.0-12.0 % Eosinophils (%) (Auto) 0.0 0.0-7.0 % Basophils (%) (Auto) 0.2 0.0-2.0 % Neutrophils # (Auto) 5.1 1.6-8.6 10 ^3/uL Lymphocytes # (Auto) 1.3 0.4-5.4 10 ^3/uL Monocytes # (Auto) 0.5 0-1.3 10 ^3/uL Eosinophils # (Auto) 0 0-0.8 10 ^3/uL Basophils # (Auto) 0 0-0.2 10 ^3/uL Nucleated Red Blood Cells 0.2 % Sodium Level 134 L 136-145 mmol/L Potassium Level 4.3 3.5-5.1 mmol/L Chloride Level 102 98-107 mmol/L Carbon Dioxide Level 22 20-31 mmol/L Anion Gap 10 5-15 Blood Urea Nitrogen 22 9-23 mg/dL Creatinine 0.94 # 0.550-1.02 mg/dL Glomerular Filtration Rate Calc 61 >90 mL/min BUN/Creatinine Ratio 23.4 H 10.0-20.0 Serum Glucose 198 H 74-106 mg/dL Hemoglobin A1c 6.2 H <5.7 % A1C Calcium Level 9.3 8.7-10.4 mg/dL Magnesium Level 1.7 1.6-2.6 mg/dL Total Bilirubin 0.3 0.2-1.0 mg/dL Aspartate Amino Transferase (AST) 9 L 13-40 U/L Alanine Aminotransferase (ALT) 10 7-40 U/L Alkaline Phosphatase 29 L 46-116 U/L Total Protein 6.5 5.7-8.2 g/dL Albumin 4.4 3.2-4.8 g/dL Triglycerides Level 95 < 150 mg/dL Cholesterol Level 108 < 200 mg/dL LDL Cholesterol 48 < 100 mg/dL HDL Cholesterol 42 40-59 mg/dL Thyroid Stimulating Hormone (TSH) 0.47 L 0.55-4.78 uIU/mL Urine Color Yellow Yellow Urine Clarity Clear Clear Urine pH 6.0 5.0-9.0 Urine Specific [place] 1.028 1.001-1.035 Urine Protein 3+ H Negative Urine Ketones 1+ H Negative Urine Blood Negative Negative /uL Urine Nitrite Negative Negative Urine Bilirubin Negative Negative Urine Urobilinogen Normal Negative mg/dL Urine Leukocyte Esterase 1+ Negative /uL Urine RBC 2 0 - 4 /hpf Urine Microscopic WBC 3 0-5 /HPF Urine Squamous Epithelial Cells Few <5 /hpf Urine Bacteria None seen None Seen /hpf Urine Glucose Normal Normal mg/dL Troponin I High Sensitivity 6 </=34 ng/L B-Type Natriuretic Peptide 688.37 0-100 pg/mL Assessment Acute on chronic HFpEF, NYHA class III, newly diagnosed Hypertension Hyperlipidemia Peripheral vascular disease status post right carotid stent (on Plavix and aspirin) Mitral valve regurgitation, mild to moderate degree COPD exacerbation Anemia CVA Type 2 diabetes mellitus ?Thyroid disease Chronic back pain Plan/Recommendation We will continue with the following plan/recommendations (Dr. Casper): A transthoracic echocardiogram reveals an EF of 65% with moderate diastolic dysfunction. At this time we will recommend for the patient to continue with a preload and afterload reduction. Consider switching IV Lasix to oral. Continue with dual antiplatelet therapy and lipid-lowering agent. There is no further inpatient cardiac workup indicated at this time. The patient has a rn occupational health in the outpatient setting and states she is scheduled to follow up. Thank you for allowing us to care for this patient. Please call with any questions or concerns. Critical care time spent: 43 minutes This medical document was created using an electronic medical record system with voice recognition software and computerized dictation system. Although this document has been carefully reviewed, there might still be some phonetic and typographical errors. Occasional wrong-word or ``sound-alike substitutions may have occurred due to the inherent limitations of voice recognition software. These areas are purely typographical due to imperfections of the software programs and do not reflect any compromise in the patient's medical care. Please read the chart carefully and recognize, using context, where these substitutions have occurred. Plan discussed with: Patient NYHA Physical activity limitations: Class3(Marked) ordinary (activity causes symtoms) Date of Service: Jul 14, 2024 Billing Provider: REINIER DE LEÓN Cardiology Common Codes: [id number] INP/OBS CARE (High) Cardiology Consultation Codes: [id number] CONSULT <45MIN REINIER DE LEÓN Jul 14, 2024 11:35
--- NOTE | 2024-07-14 11:39 | DVHSR ---
APPROVED REPORT EXAM: Two-dimensional and M-mode echocardiogram with Doppler and color Doppler. Blood Pressure: 148/68 mmHg INDICATION Heart Failure RISK FACTORS Height: 5'5", Weight: 134 DIMENSIONS LVDd4.6 (3.8-5.7cm)LA (2D)4.9 (1.9-4.0cm)Aortic Root (2.0-3.7cm) LVDs2.9 (2.5-4.0cm)LA (MM) (1.9-4.0cm)Aortic Cusp Exc (1.5-2.0cm) EF (%) 66.0 (55-70%)Rt. Atrium3.4 (1.9-4.0cm)Asc. Aorta3.4 cm IVSd1.2 (0.7-1.1cm)RV (D)3.2 (1.8-2.4cm) Mitral Valve MitralMitral Stenosis E wave1.19m/sMV Mean GR.mmHg A wave0.79m/sMV Peak GR.mmHg E/A ratio1.52D MVAcm2 DECEL [id number] 1/2 [place] Aortic Valve Aortic ValveAortic Stenosis V11.30m/Homa Mean GR.12mmHg V22.26m/Homa Peak GR.20mmHg LVOT Diameter1.9 (1.8-2.4cm)Doppler AVA1.63cm2 Tricuspid Valve TR Velocity2.70m/s [id number] LEFT VENTRICLE The left ventricle is normal size. There is mild left ventricular wall hypertrophy. The left ventricle is normal in structure and function, LVEF is 65%. There is moderate diastolic dysf unction. Normal left ventriular wall motion. RIGHT VENTRICLE The right ventricle is normal size. The right ventricular systolic function is normal. ATRIA The left atrium is moderately dilated. The right atrium size is normal. MITRAL VALVE The mitral valve leaflets appear thickened, but open well. Mitral regurgitation is mild to moderate. PULMONIC VALVE The pulmonic valve is not well visualized. There is trace pulmonic valvular regurgitation. TRICUSPID VALVE The tricuspid valve is grossly normal. There is trace tricuspid regurgitation. AORTIC VALVE The aortic valve is trileaflet. The aortic valve is calcified. No aortic regurgitation is present. There is mild valvular aortic stenosis. GREAT VESSELS The aortic root is normal size. PERICARDIAL EFFUSION There is a trace pericardial effusion. Other Information Quality : Technically LimitedRhythm : Technically limited study due to body habitus. Conclusion The left ventricle is normal size. There is mild left ventricular wall hypertrophy. The left ventricl e is normal in structure and function, LVEF is 65%. There is moderate diastolic dysfunction. Normal l eft ventriular wall motion. The right ventricle is normal size. The right ventricular systolic function is normal. The left atrium is moderately dilated. Mitral regurgitation is mild to moderate. IVC is normal size and collapses > 50% with inspiration. There is a trace pericardial effusion.
--- NOTE | 2024-07-14 12:19 | DVH ---
Bilateral Chest Sonogram Date: 07/14/2024 11:55 AM Clinical history: sob Technique: Limited sonographic evaluation of the bilateral chest was performed to evaluate for pleur al effusion. Finding/Impression: Small bilateral pleural effusions.
--- NOTE | 2024-07-14 16:48 | DVHPN2 ---
Subjective 07/14 cough very mild, SOB improving. feeling well. not on oxygen at home. has COPD , quit smoking 2011. cardioogy onboard. EF 65% good. sol cont treatment. Reviewed: H&P Changes from previous H/P or p: No Changes General: Per HPI Musculoskeletal: No other, No neck pain, No shoulder pain, No arm pain, No back pain, No hand pain, No leg pain, No foot pain Skin: No Rash, No Lesions, No Jaundice, No Bruising, No Other Objective Vitals Vital Signs Date Time Temp Pulse Resp B/P (MAP) Pulse Ox O2 Delivery O2 Flow Rate FiO2 07/14/24 13:00 97.9 85 16 152/66 (94) 95 97.9 07/14/24 10:50 Nasal Cannula 3.0 07/14/24 10:50 32 Intake/Output Intake and Output 07/14/24 07:00 Intake Total 125 ml Balance 125 ml Intake Oral 75 ml IV Total 50 ml # Voids 1 Exam faint murmur, bibasilar rales, minimal/trace pedal edema. on oxygen 2-3L. NAD. Medications Current Medications Medications Dose Ordered Sig/Ronaldo Route Start Time Stop Time Status Last Admin Dose Admin Clopidogrel Bisulfate 75 mg DAILY PO 07/14/24 10:00 07/14/24 09:08 75 MG Ceftriaxone Sodium 50 ml @ 100 mls/hr DAILY@09 IV 07/14/24 09:00 07/14/24 09:00 100 MLS/HR Albuterol 2.5 mg Q4HPRN PRN NEB 07/13/24 21:30 Famotidine 20 mg DAILY IV 07/13/24 22:00 07/14/24 09:08 20 MG Amlodipine Besylate 5 mg DAILY PO 07/14/24 10:00 07/14/24 09:07 5 MG Carvedilol 6.25 mg Q12HR PO 07/13/24 22:00 07/14/24 09:07 6.25 MG Diagnostic Test (Pha) 1 strip ACHS 07/13/24 22:00 07/14/24 11:43 1 STRIP Insulin Human Regular HS SC 07/13/24 22:00 07/13/24 22:35 4 UNITS Insulin Human Regular AC SC 07/14/24 07:00 07/14/24 11:42 2 UNITS Dextrose 50 ml UD PRN IV 07/13/24 21:30 Sodium Chloride 10 ml Q8HR IV 07/13/24 22:00 07/14/24 05:32 10 ML Acetaminophen/ Hydrocodone Bitart 1 tab Q4HP PRN PO 07/13/24 21:30 07/14/24 10:12 1 TAB Ondansetron HCl 4 mg Q4HP PRN IV 07/13/24 21:30 Docusate Sodium 100 mg BIDPRN PRN PO 07/13/24 21:30 Acetaminophen 650 mg Q6HP PRN PO 07/13/24 21:30 Nitroglycerin 0.4 mg Q5MINP PRN SL 07/13/24 23:00 Morphine Sulfate 2 mg Q30M PRN IV 07/13/24 23:00 Hydralazine HCl 10 mg Q6HP PRN IV 07/14/24 03:30 07/14/24 12:21 10 MG Methylprednisolone Sodium Succinate 40 mg DAILY IV 07/15/24 10:00 Furosemide 20 mg BIDD IV 07/14/24 18:00 Azithromycin 250 ml @ 125 mls/hr DAILY IV 07/15/24 10:00 Laboratory Results Laboratory Tests 07/14/24 05:30 Chemistry Test 07/14/24 05:30 Albumin 4.4 g/dL (3.2-4.8) Calcium Level 9.3 mg/dL (8.7-10.4) Magnesium Level 1.7 mg/dL (1.6-2.6) Total Protein 6.5 g/dL (5.7-8.2) Lipid panel Test 07/14/24 05:30 Cholesterol Level 108 mg/dL (< 200) HDL Cholesterol 42 mg/dL (40-59) Triglycerides Level 95 mg/dL (< 150) LFT Test 07/14/24 05:30 Alanine Aminotransferase (ALT) 10 U/L (7-40) Alkaline Phosphatase 29 U/L (46-116) L Aspartate Amino Transferase (AST) 9 U/L (13-40) L Total Bilirubin 0.3 mg/dL (0.2-1.0) HgA1c, TSH Test 07/14/24 05:30 Hemoglobin A1c 6.2 % A1C (<5.7) H Thyroid Stimulating Hormone (TSH) 0.47 uIU/mL (0.55-4.78) L Urinalysis Test 07/13/24 12:03 Urine Color Yellow (Yellow) Urine Clarity Clear (Clear) Urine pH 6.0 (5.0-9.0) Urine Specific [place] 1.028 (1.001-1.035) Urine Protein 3+ (Negative) H Urine Ketones 1+ (Negative) H Urine Blood Negative /uL (Negative) Urine Nitrite Negative (Negative) Urine Bilirubin Negative (Negative) Urine Urobilinogen Normal mg/dL (Negative) Urine Leukocyte Esterase 1+ /uL (Negative) Urine RBC 2 /hpf (0 - 4) Urine Microscopic WBC 3 /HPF (0-5) Urine Squamous Epithelial Cells Few /hpf (<5) Urine Bacteria None seen /hpf (None Seen) Urine Glucose Normal mg/dL (Normal) Labs and/or images reviewed: Labs reviewed by me, Image(s) reviewed by me Assessment/Plan Assessment/Plan 07/14 cough very mild, SOB improving. feeling well. not on oxygen at home. has COPD , quit smoking 2011. cardioogy onboard. EF 65% good. sol cont treatment. acute hypoxic resp failure due to COPD- see below. COPD exacerbation w pneumonitis - solumedrl then po prednisone pneumonia possible, gram-/gram+/atyypical likely; , flu covid neg. azithro, ctx acute on chronic diastolic dysfunciton heart failure exacbation possible - bnp high, trop neg, cxr w vasc congestion and BL effusion. - lasix, echo done with EF65% anemia- monitor daily cbc. CAD - cont home meds DM - a1c 6.2 - cont SSI mild CV - continue home meds. Plan discussed with: Patient My Orders Orders - MARY ADAN MD Procedure Category Date Status Time Methylprednisolone PHA 07/15/24 In Process Sod Succ (Solu Medrol 10:00 Furosemide Injection PHA 07/14/24 In Process (Lasix Injection) 18:00 Azithromycin 500mg/ PHA 07/15/24 In Process 250ml (Zithromax 50 10:00 Date of Service: Jul 14, 2024 Billing Provider: MARY ADAN MD Common Visit Codes: [id number] INP/OBS CARE(HIGH) MARY ADAN MD Jul 14, 2024 16:48
[2024-07-14] MEDS: FUROSEMIDE 20 MG/2 ML VIAL IV SCH (17:30)
[2024-07-14] MEDS: AZITHROMYCIN 500MG/ 250ML 250 ML IV ONE (17:30)
[2024-07-14 18:55] LABS: Free T3 2.07 pg/mL (2.3-4.2)
[2024-07-14 18:56] LABS: Free T4 (Free Thyroxine) 1.22 ng/dL (0.89-1.76)
[2024-07-14] MEDS: ALBUTEROL SULF 2.5 MG/0.5ML(0.5%) NEB SOLN NEB SCH (19:02)
[2024-07-14] MEDS: IPRATROPIUM BROM 0.5 MG/2.5ML INH SOL NEB SCH (19:02)
[2024-07-15] VITALS (17 sets, daily range): BP systolic 101–166; BP diastolic 51–79; PULSE 72–93; RESP 16–20; TEMP 97.2–98.9; O2SAT 87–99
[2024-07-15] MEDS: ASPirin 81 mg TAB PO SCH (10:06)
[2024-07-15] MEDS: methylPREDNISolone SOD SUCC 40 MG/ML VL IV SCH (10:09)
[2024-07-15] MEDS: AZITHROMYCIN 500MG/ 250ML 250 ML IV SCH (15:36)
[2024-07-15] MEDS ORDERED: hydrALAZINE HCL 20 MG/ML VL IV PRN (16:15)
--- NOTE | 2024-07-15 16:15 | DVHPN2 ---
Subjective 07/15 updates. 07/14 cough very mild, SOB improving. feeling well. not on oxygen at home. has COPD , quit smoking 2011. cardioogy onboard. EF 65% good. sol cont treatment. 07/15 - hypertensive, up amlo 10, prn hydralazine iv sBP>170. abx ctx/zpac to ctx/doxy, stop lasix. cont solumedrol. wean off oxygen (goal 88-92%). PT eval as pt is very NORTH. more NORTH if takes off oxygen. Reviewed: H&P Changes from previous H/P or p: No Changes General: Per HPI Musculoskeletal: No other, No neck pain, No shoulder pain, No arm pain, No back pain, No hand pain, No leg pain, No foot pain Skin: No Rash, No Lesions, No Jaundice, No Bruising, No Other Objective Vitals Vital Signs Date Time Temp Pulse Resp B/P (MAP) Pulse Ox O2 Delivery O2 Flow Rate FiO2 07/15/24 14:31 78 18 98 07/15/24 14:26 Nasal Cannula* 2 28 07/15/24 13:00 97.2 166/79 (108) 97.2 Intake/Output Intake and Output 07/15/24 07:00 Intake Total 1855 ml Balance 1855 ml Intake Oral 1805 ml IV Total 50 ml # Voids 7 # Bowel Movements 1 Exam faint murmur, bibasilar rales, minimal/trace pedal edema. on oxygen 2-3L. NAD. Medications Current Medications Medications Dose Ordered Sig/Ronaldo Route Start Time Stop Time Status Last Admin Dose Admin Clopidogrel Bisulfate 75 mg DAILY PO 07/14/24 10:00 07/15/24 10:08 75 MG Ceftriaxone Sodium 50 ml @ 100 mls/hr DAILY@09 IV 07/14/24 09:00 07/15/24 10:10 100 MLS/HR Albuterol 2.5 mg Q4HPRN PRN NEB 07/13/24 21:30 Famotidine 20 mg DAILY IV 07/13/24 22:00 07/15/24 10:09 20 MG Carvedilol 6.25 mg Q12HR PO 07/13/24 22:00 07/15/24 10:08 6.25 MG Diagnostic Test (Pha) 1 strip ACHS 07/13/24 22:00 07/15/24 11:55 1 STRIP Insulin Human Regular HS SC 07/13/24 22:00 07/13/24 22:35 4 UNITS Insulin Human Regular AC SC 07/14/24 07:00 07/15/24 11:55 2 UNITS Dextrose 50 ml UD PRN IV 07/13/24 21:30 Sodium Chloride 10 ml Q8HR IV 07/13/24 22:00 07/15/24 14:09 10 ML Acetaminophen/ Hydrocodone Bitart 1 tab Q4HP PRN PO 07/13/24 21:30 07/15/24 15:36 1 TAB Ondansetron HCl 4 mg Q4HP PRN IV 07/13/24 21:30 Docusate Sodium 100 mg BIDPRN PRN PO 07/13/24 21:30 Acetaminophen 650 mg Q6HP PRN PO 07/13/24 21:30 Nitroglycerin 0.4 mg Q5MINP PRN SL 07/13/24 23:00 Morphine Sulfate 2 mg Q30M PRN IV 07/13/24 23:00 Methylprednisolone Sodium Succinate 40 mg DAILY IV 07/15/24 10:00 07/15/24 10:09 40 MG Ipratropium [place] 0.5 mg Q6HR NEB 07/14/24 18:00 07/15/24 14:26 0.5 MG Albuterol 2.5 mg Q6HR NEB 07/14/24 18:00 07/15/24 14:26 2.5 MG Aspirin 81 mg DAILY PO 07/15/24 10:00 07/15/24 10:06 81 MG Amlodipine Besylate 10 mg DAILY PO 07/15/24 16:15 UNV Hydralazine HCl 10 mg Q6HP PRN IV 07/15/24 16:15 UNV Doxycycline Monohydrate 100 mg Q12HR PO 07/15/24 22:00 UNV Laboratory Results Laboratory Tests 07/14/24 05:30 Urinalysis Test 07/13/24 12:03 Urine Color Yellow (Yellow) Urine Clarity Clear (Clear) Urine pH 6.0 (5.0-9.0) Urine Specific [place] 1.028 (1.001-1.035) Urine Protein 3+ (Negative) H Urine Ketones 1+ (Negative) H Urine Blood Negative /uL (Negative) Urine Nitrite Negative (Negative) Urine Bilirubin Negative (Negative) Urine Urobilinogen Normal mg/dL (Negative) Urine Leukocyte Esterase 1+ /uL (Negative) Urine RBC 2 /hpf (0 - 4) Urine Microscopic WBC 3 /HPF (0-5) Urine Squamous Epithelial Cells Few /hpf (<5) Urine Bacteria None seen /hpf (None Seen) Urine Glucose Normal mg/dL (Normal) Labs and/or images reviewed: Labs reviewed by me, Image(s) reviewed by me Assessment/Plan Assessment/Plan 07/15 - hypertensive, up amlo 10, prn hydralazine iv sBP>170. abx ctx/zpac to ctx/doxy, stop lasix. cont solumedrol. wean off oxygen (goal 88-92%). PT eval as pt is very NORTH. more NORTH if takes off oxygen. acute hypoxic resp failure due to COPD- see below. COPD exacerbation w pneumonitis - solumedrl then po prednisone pneumonia possible, flu covid neg. try ctx/doxy (prior azithro, ctx) acute on chronic diastolic dysfunciton heart failure exacbation possible - bnp high, trop neg, cxr w vasc congestion and BL effusion. - lasix, echo done with EF65% anemia- monitor daily cbc. CAD - cont home meds DM - a1c 6.2 - cont SSI mild CV - continue home meds. diet - DM card dvt - lovenox gi ppx - mai diet medsurg full code. Plan discussed with: Patient My Orders Orders - MARY ADAN MD Procedure Category Date Status Time Ipratropium Medneb PHA 07/14/24 In Process (Atrovent Medneb) 18:00 Albuterol Medneb PHA 07/14/24 In Process (Ventolin Medneb) 18:00 Amlodipine Tablet PHA 07/15/24 Logged (Norvasc Tablet) 16:15 Hydralazine Injection PHA 07/15/24 Logged (Apresoline Inject 16:15 Doxycycline Tablet PHA 07/15/24 Logged (Vibramycin Tablet) 22:00 Date of Service: Jul 15, 2024 Billing Provider: MARY ADAN MD Common Visit Codes: [id number] INP/OBS CARE(HIGH) MARY ADAN MD Jul 15, 2024 16:15
[2024-07-15] MEDS: amLODIPine BESYLATE 5 MG TAB PO SCH (18:28)
[2024-07-15] MEDS: DOXYCYCLINE 100 MG TAB/CAP PO SCH (21:38)
[2024-07-16] VITALS (15 sets, daily range): BP systolic 124–162; BP diastolic 49–71; PULSE 60–96; RESP 16–20; TEMP 97.5–98.5; O2SAT 90–98
[2024-07-16 07:38] LABS: Basophils # (auto) 0 10 ^3/uL (0-0.2); Basophils % (auto) 0.5 % (0.0-2.0); Eosinophils # (auto) 0 10 ^3/uL (0-0.8); Monocytes # (auto) 0.7 10 ^3/uL (0-1.3); Monocytes % (auto) 7.8 % (0.0-12.0); Neutrophils # (auto) 4.7 10 ^3/uL (1.6-8.6); Red Cell Distribution Width 18.5 % (11.8-14.3); White Blood Cell 8.9 10^3/uL (4.4-10.8)
[2024-07-16 07:42] LABS: Eosinophils % (auto) 0.4 % (0.0-7.0); Hematocrit 28.7 % (36.0-46.0); Hemoglobin 8.9 g/dL (12.2-16.2); Lymphocytes # (auto) 3.4 10 ^3/uL (0.4-5.4); Lymphocytes % (auto) 38.6 % (10.0-50.0); Mean Corpuscular Hemoglobin 23.8 pg (28.0-32.0); Mean Corpuscular Hgb Conc. 30.9 g/dL (32.0-36.0); Mean Corpuscular Volume 77.2 fL (80.0-100.0); Neutrophils % (auto) 52.7 % (37.0-80.0); Platelet Count (auto) 306 10^3/uL (140-450); Red Blood Cells 3.72 10^6/uL (4.0-5.20)
[2024-07-16 08:08] LABS: Alanine Aminotransferase 14 U/L (7-40); Albumin 4.2 g/dL (3.2-4.8); Anion Gap 10 (5-15); BUN/Creatinine Ratio 20.5 (10.0-20.0); Bilirubin, Total 0.4 mg/dL (0.2-1.0); Blood Urea Nitrogen 16 mg/dL (9-23); Calcium 9.8 mg/dL (8.7-10.4); Carbon Dioxide 25 mmol/L (20-31); Chloride 103 mmol/L (98-107); Potassium 3.7 mmol/L (3.5-5.1); Sodium 138 mmol/L (136-145); Total Protein 6.3 g/dL (5.7-8.2)
[2024-07-16 08:22] LABS: Alkaline Phosphatase 29 U/L (46-116); Aspartate Aminotransferase 10 U/L (13-40); Glucose 141 mg/dL (74-106)
[2024-07-16] MEDS: FUROSEMIDE 20 MG/2 ML VIAL IV SCH (12:17)
--- NOTE | 2024-07-16 18:25 | DVHPN2 ---
Subjective 07/16 updates. 07/14 cough very mild, SOB improving. feeling well. not on oxygen at home. has COPD , quit smoking 2011. cardioogy onboard. EF 65% good. sol cont treatment. 07/15 - hypertensive, up amlo 10, prn hydralazine iv sBP>170. abx ctx/zpac to ctx/doxy, stop lasix. cont solumedrol. wean off oxygen (goal 88-92%). PT eval as pt is very NORTH. more NORTH if takes off oxygen. 07/16 patient is at her baseline, she worked with PT yesterday, and did very well has no requirements/needs. Lasix given1 time this a.m., no further Lasix. Continues to require oxygen at 1 L nasal cannula. Patient is improved to back to her baseline. We will need to see if patient requires for oxygen, ABG ordered, social media developer ordered. If patient meets requirements, tomorrow social media developer consult for oxygen we will be needed. Reviewed: H&P Changes from previous H/P or p: No Changes General: Per HPI Musculoskeletal: No other, No neck pain, No shoulder pain, No arm pain, No back pain, No hand pain, No leg pain, No foot pain Skin: No Rash, No Lesions, No Jaundice, No Bruising, No Other Objective Vitals Vital Signs Date Time Temp Pulse Resp B/P (MAP) Pulse Ox O2 Delivery O2 Flow Rate FiO2 07/16/24 17:00 97.5 91 19 161/56 (91) 93 97.5 07/16/24 11:45 Nasal Cannula* 1 24 Intake/Output Intake and Output 07/16/24 07:00 Intake Total 850 ml Output Total 600 ml Balance 250 ml Intake Oral 800 ml IV Total 50 ml Output Urine Total 600 ml # Voids 1 Exam faint murmur, no rales, minimal/trace pedal edema. on oxygen 1-2L. NAD. Medications Current Medications Medications Dose Ordered Sig/Ronaldo Route Start Time Stop Time Status Last Admin Dose Admin Clopidogrel Bisulfate 75 mg DAILY PO 07/14/24 10:00 07/16/24 10:02 75 MG Ceftriaxone Sodium 50 ml @ 100 mls/hr DAILY@09 IV 07/14/24 09:00 07/16/24 12:18 100 MLS/HR Albuterol 2.5 mg Q4HPRN PRN NEB 07/13/24 21:30 Famotidine 20 mg DAILY IV 07/13/24 22:00 07/16/24 12:17 20 MG Carvedilol 6.25 mg Q12HR PO 07/13/24 22:00 07/16/24 10:02 6.25 MG Diagnostic Test (Pha) 1 strip ACHS 07/13/24 22:00 07/16/24 16:49 1 STRIP Insulin Human Regular HS SC 07/13/24 22:00 07/15/24 21:49 3 UNITS Insulin Human Regular AC SC 07/14/24 07:00 07/16/24 16:49 9 UNITS Dextrose 50 ml UD PRN IV 07/13/24 21:30 Sodium Chloride 10 ml Q8HR IV 07/13/24 22:00 07/16/24 14:00 10 ML Ondansetron HCl 4 mg Q4HP PRN IV 07/13/24 21:30 Docusate Sodium 100 mg BIDPRN PRN PO 07/13/24 21:30 Acetaminophen 650 mg Q6HP PRN PO 07/13/24 21:30 Nitroglycerin 0.4 mg Q5MINP PRN SL 07/13/24 23:00 Morphine Sulfate 2 mg Q30M PRN IV 07/13/24 23:00 Methylprednisolone Sodium Succinate 40 mg DAILY IV 07/15/24 10:00 07/16/24 12:17 40 MG Ipratropium [place] 0.5 mg Q6HR NEB 07/14/24 18:00 07/16/24 11:45 0.5 MG Albuterol 2.5 mg Q6HR NEB 07/14/24 18:00 07/16/24 11:45 2.5 MG Aspirin 81 mg DAILY PO 07/15/24 10:00 07/16/24 10:02 81 MG Amlodipine Besylate 10 mg DAILY PO 07/15/24 16:15 07/16/24 10:01 10 MG Hydralazine HCl 10 mg Q6HP PRN IV 07/15/24 16:15 Doxycycline Monohydrate 100 mg Q12HR PO 07/15/24 22:00 07/16/24 10:01 100 MG Furosemide 20 mg DAILY IV 07/16/24 10:00 07/16/24 12:17 20 MG Acetaminophen/ Hydrocodone Bitart 1 tab Q4HP PRN PO 07/16/24 15:00 Laboratory Results Laboratory Tests 07/16/24 07:08 Chemistry Test 07/16/24 07:08 Albumin 4.2 g/dL (3.2-4.8) Calcium Level 9.8 mg/dL (8.7-10.4) Total Protein 6.3 g/dL (5.7-8.2) LFT Test 07/16/24 07:08 Alanine Aminotransferase (ALT) 14 U/L (7-40) Alkaline Phosphatase 29 U/L (46-116) L Aspartate Amino Transferase (AST) 10 U/L (13-40) L Total Bilirubin 0.4 mg/dL (0.2-1.0) Urinalysis Test 07/13/24 12:03 Urine Color Yellow (Yellow) Urine Clarity Clear (Clear) Urine pH 6.0 (5.0-9.0) Urine Specific [place] 1.028 (1.001-1.035) Urine Protein 3+ (Negative) H Urine Ketones 1+ (Negative) H Urine Blood Negative /uL (Negative) Urine Nitrite Negative (Negative) Urine Bilirubin Negative (Negative) Urine Urobilinogen Normal mg/dL (Negative) Urine Leukocyte Esterase 1+ /uL (Negative) Urine RBC 2 /hpf (0 - 4) Urine Microscopic WBC 3 /HPF (0-5) Urine Squamous Epithelial Cells Few /hpf (<5) Urine Bacteria None seen /hpf (None Seen) Urine Glucose Normal mg/dL (Normal) Labs and/or images reviewed: Labs reviewed by me, Image(s) reviewed by me Assessment/Plan Assessment/Plan 07/16 patient is at her baseline, she worked with PT yesterday, and did very well has no requirements/needs. Lasix given1 time this a.m., no further Lasix. Continues to require oxygen at 1 L nasal cannula. Patient is improved to back to her baseline. We will need to see if patient requires for oxygen, ABG ordered, social media developer ordered. If patient meets requirements, tomorrow social media developer consult for oxygen we will be needed. acute hypoxic resp failure due to COPD- see below. COPD exacerbation w pneumonitis - solumedrl then po prednisone pneumonia possible, flu covid neg. try ctx/doxy (prior azithro, ctx) acute on chronic diastolic dysfunciton heart failure exacbation possible - bnp high, trop neg, cxr w vasc congestion and BL effusion. - lasix, echo done with EF65% anemia- monitor daily cbc. CAD - cont home meds DM - a1c 6.2 - cont SSI mild CV - continue home meds. diet - DM card dvt - lovenox gi ppx - mai diet medsurg full code. Plan discussed with: Patient My Orders Orders - MARY ADAN MD Procedure Category Date Status Time Discontinue Tele EPIFANIO 07/16/24 In Process 00:35 Transfer Orders XFER 07/16/24 Transmitted 00:35 Furosemide Injection PHA 07/16/24 In Process (Lasix Injection) 10:00 Hydrocodone-Acet PHA 07/16/24 In Process 10/325mg Tab ([place] 15:00 Abg W/ Co-Ox RT 07/16/24 Verified 18:18 Ss Eval For Home CONS 07/16/24 Verified Oxygen Date of Service: Jul 16, 2024 Billing Provider: MARY ADAN MD Common Visit Codes: [id number] INP/OBS CARE(HIGH) MARY ADAN MD Jul 16, 2024 18:25
[2024-07-16] MEDS ORDERED: CLOP75TA70 PO (18:42)
[2024-07-16] MEDS ORDERED: CHOL10009 PO (18:42)
[2024-07-16] MEDS ORDERED: CYAN100L PO (18:42)
[2024-07-16] MEDS ORDERED: CALC-315 OR (18:42)
[2024-07-16] MEDS ORDERED: METH-1182 PO (18:42)
[2024-07-16] MEDS ORDERED: FLUT1AER7 IN (18:42)
[2024-07-16] MEDS ORDERED: LOSA-533 PO (18:42)
[2024-07-16] MEDS ORDERED: ASPI-498 OR (18:42)
[2024-07-16] MEDS ORDERED: MIRT1TAB14 PO (18:42)
[2024-07-16] MEDS ORDERED: EZET10TA22 PO (18:42)
[2024-07-16] MEDS ORDERED: CRAN125T PO (18:42)
[2024-07-16 20:11] LABS: Base Excess 1.6 mmol/L (-2.0-3.0)
[2024-07-16] MEDS: HYDROcodone-ACET 10/325MG TAB PO PRN (22:02)
[2024-07-17] VITALS (13 sets, daily range): BP systolic 103–164; BP diastolic 56–74; PULSE 60–94; RESP 16–20; TEMP 97.5–98.2; O2SAT 90–98
[2024-07-17 08:18] LABS: Basophils # (auto) 0 10 ^3/uL (0-0.2); Basophils % (auto) 0.4 % (0.0-2.0); Eosinophils # (auto) 0 10 ^3/uL (0-0.8); Hemoglobin 9.1 g/dL (12.2-16.2); Monocytes # (auto) 0.7 10 ^3/uL (0-1.3); Nucleated Red Blood Cells % 0.1 %
[2024-07-17 08:20] LABS: Eosinophils % (auto) 0.3 % (0.0-7.0); Lymphocytes % (auto) 37.7 % (10.0-50.0); Mean Corpuscular Hemoglobin 24.3 pg (28.0-32.0); Mean Corpuscular Hgb Conc. 31.2 g/dL (32.0-36.0); Mean Corpuscular Volume 77.6 fL (80.0-100.0); Monocytes % (auto) 9.2 % (0.0-12.0); Neutrophils # (auto) 4.2 10 ^3/uL (1.6-8.6); Neutrophils % (auto) 52.4 % (37.0-80.0); Platelet Count (auto) 287 10^3/uL (140-450); Red Blood Cells 3.74 10^6/uL (4.0-5.20); Red Cell Distribution Width 18.4 % (11.8-14.3)
[2024-07-17 08:31] LABS: Alanine Aminotransferase 14 U/L (7-40); Albumin 4.3 g/dL (3.2-4.8); Anion Gap 9 (5-15); BUN/Creatinine Ratio 17.3 (10.0-20.0); Blood Urea Nitrogen 14 mg/dL (9-23); Calcium 9.7 mg/dL (8.7-10.4); Carbon Dioxide 26 mmol/L (20-31); Chloride 102 mmol/L (98-107); Sodium 137 mmol/L (136-145)
[2024-07-17 08:32] LABS: Bilirubin, Total 0.4 mg/dL (0.2-1.0); Total Protein 6.4 g/dL (5.7-8.2)
[2024-07-17 08:34] LABS: Alkaline Phosphatase 29 U/L (46-116); Aspartate Aminotransferase 11 U/L (13-40); Glucose 130 mg/dL (74-106); Potassium 3.4 mmol/L (3.5-5.1)
[2024-07-17] MEDS ORDERED: DOXY1CAP57 PO (14:24)
[2024-07-17] MEDS ORDERED: PRED20TA2 PO (14:24)
[2024-07-17] MEDS ORDERED: CARV6.2551 PO (14:24)
--- NOTE | 2024-07-17 14:34 | DVHDS2 ---
Discharge Summary Date of Admission Jul 13, 2024 at 22:58 Date of Discharge: Jul 17, 2024 Admitting Diagnosis Short of breath Labs/Diagnostic Data: Laboratory Results Test 07/17/24 12:02 07/17/24 06:58 07/16/24 19:38 07/14/24 05:30 POC Glucose 215 mg/dl (70-106) White Blood Count 8.0 10^3/uL (4.4-10.8) Red Blood Count 3.74 10^6/uL (4.0-5.20) Hemoglobin 9.1 g/dL (12.2-16.2) Hematocrit 29.0 % (36.0-46.0) Mean Corpuscular Volume 77.6 fL (80.0-100.0) Mean Corpuscular Hemoglobin 24.3 pg (28.0-32.0) Mean Corpuscular Hemoglobin Concent 31.2 g/dL (32.0-36.0) Red Cell Distribution Width 18.4 % (11.8-14.3) Platelet Count 287 10^3/uL (140-450) Mean Platelet Volume 6.1 fL (6.9-10.8) Neutrophils (%) (Auto) 52.4 % (37.0-80.0) Lymphocytes (%) (Auto) 37.7 % (10.0-50.0) Monocytes (%) (Auto) 9.2 % (0.0-12.0) Eosinophils (%) (Auto) 0.3 % (0.0-7.0) Basophils (%) (Auto) 0.4 % (0.0-2.0) Neutrophils # (Auto) 4.2 10 ^3/uL (1.6-8.6) Lymphocytes # (Auto) 3.0 10 ^3/uL (0.4-5.4) Monocytes # (Auto) 0.7 10 ^3/uL (0-1.3) Eosinophils # (Auto) 0 10 ^3/uL (0-0.8) Basophils # (Auto) 0 10 ^3/uL (0-0.2) Nucleated Red Blood Cells 0.1 % Sodium Level 137 mmol/L (136-145) Potassium Level 3.4 mmol/L (3.5-5.1) Chloride Level 102 mmol/L (98-107) Carbon Dioxide Level 26 mmol/L (20-31) Anion Gap 9 (5-15) Blood Urea Nitrogen 14 mg/dL (9-23) Creatinine 0.81 mg/dL (0.550-1.02) Glomerular Filtration Rate Calc 72 mL/min (>90) BUN/Creatinine Ratio 17.3 (10.0-20.0) Serum Glucose 130 mg/dL (74-106) Calcium Level 9.7 mg/dL (8.7-10.4) Total Bilirubin 0.4 mg/dL (0.2-1.0) Aspartate Amino Transferase (AST) 11 U/L (13-40) Alanine Aminotransferase (ALT) 14 U/L (7-40) Alkaline Phosphatase 29 U/L (46-116) Total Protein 6.4 g/dL (5.7-8.2) Albumin 4.3 g/dL (3.2-4.8) Blood Gas Specimen Type Arterial Blood Gas Sample Site Right radial Blood Gas Patient Temperature 37.0 Arterial Blood Date Drawn [id number] Arterial Blood pH 7.517 (7.350-7.450) Arterial Blood Partial Pressure CO2 30.4 mmHg (32.0-45.0) Arterial Blood Partial Pressure O2 63.6 mmHg (83.0-108.0) Arterial Blood HCO3 24.1 mmol/L (21.0-28.0) Arterial Blood Oxygen Saturation 92.7 % (94.0-98.0) Arterial Blood Base Excess 1.6 mmol/L (-2.0-3.0) Arterial Blood Oxyhemoglobin 91.6 % (94.0-98.0) Arterial Blood Carboxyhemoglobin 1.0 % (0.5-1.5) Arterial Blood Methemoglobin 0.2 % (0.0-1.5) Andres Test Yes Blood Gas Total Hemoglobin 10.20 g/dL (12.0-16.0) Blood Gas Modality Room air FiO2 % 21.0 Hemoglobin A1c 6.2 % A1C (<5.7) Magnesium Level 1.7 mg/dL (1.6-2.6) Triglycerides Level 95 mg/dL (< 150) Cholesterol Level 108 mg/dL (< 200) LDL Cholesterol 48 mg/dL (< 100) HDL Cholesterol 42 mg/dL (40-59) Thyroid Stimulating Hormone (TSH) 0.47 uIU/mL (0.55-4.78) Free Thyroxine (T4) Calculated 1.22 ng/dL (0.89-1.76) Free Triiodothyronine (T3) pg/mL 2.07 pg/mL (2.3-4.2) Test 07/13/24 12:03 07/13/24 11:49 Urine Color Yellow (Yellow) Urine Clarity Clear (Clear) Urine pH 6.0 (5.0-9.0) Urine Specific [place] 1.028 (1.001-1.035) Urine Protein 3+ (Negative) Urine Ketones 1+ (Negative) Urine Blood Negative /uL (Negative) Urine Nitrite Negative (Negative) Urine Bilirubin Negative (Negative) Urine Urobilinogen Normal mg/dL (Negative) Urine Leukocyte Esterase 1+ /uL (Negative) Urine RBC 2 /hpf (0 - 4) Urine Microscopic WBC 3 /HPF (0-5) Urine Squamous Epithelial Cells Few /hpf (<5) Urine Bacteria None seen /hpf (None Seen) Urine Glucose Normal mg/dL (Normal) Troponin I High Sensitivity 6 ng/L (</=34) B-Type Natriuretic Peptide 688.37 pg/mL (0-100) Other Laboratory Tests 07/17/24 06:58 Brief Hx & Hospital Course: HPI: 83-year-old female with past medical history of Coronary artery disease, COPD, and CVA who presented to [facility] ED with complaint of shortness of breaths for the past 2 weeks. Patient reports symptoms progressively get worse with persistent cough, increased work of breathing, SOB at rest, getting worse today that prompted this visit. hospital summary: on admit noting, tachycardia HR>100, tachynpea RR>20 , microcytic anemia stable hb 8-9, ua sg 1.028 proteinura ketonuria, requiring oxygen 3-4 L, BNP elevated, cXR w concern for pulmonary vascular congestion , cargiomegaly and moderate R pleural effusion. on exam she has lower lobe rales, wheezing but no WOB and able to breath wthout distress. admit for hypoxic resp failure, pneumonia, CHF exacerbation and COPD exacerbation. treated with lasix duresis, solumedrol, steroids ctx/azithro, mednebs. patient hard to wean but able to wean by 2/3 and thereafter stable for discharge with plan below. diagnosis list: acute hypoxic resp failure due to COPD, resolved; respiratory alkalosis COPD exacerbation w pneumonitis; pneumonia possible, Gram-negative/Gram-positive / atypical possible; acute on chronic diastolic dysfunciton heart failure exacbation possible;; anemia, microcytic, stable;; CAD ; DM with hyperglycemia; CVA; hypokalemia, mild Hyponatremia, mild Discharge plans: -Take doxycycline 100 mg twice daily for 3 days, take prednisone 40 mg ( 2 mg tablets ) daily for 4 days, - Continue use of maintenance inhalers -stop metoprolol, Starts Coreg 6 mg twice daily, -referral to pulmonology to manage chronic disease COPD -Follow up with PCP to review discharge. -Continue other medications ( amlodipine 5 mg, aspirin 81, Lipitor 40, Plavix 75, Zetia 10, losartan 25, metformin 500 twice daily, mirtazapine 15, Protonix 40,) Condition at Discharge: Fair Final Diagnosis/Problems List acute hypoxic resp failure due to COPD, resolved; respiratory alkalosis COPD exacerbation w pneumonitis; pneumonia possible, Gram-negative/Gram-positive / atypical possible; acute on chronic diastolic dysfunciton heart failure exacbation possible;; anemia, microcytic, stable;; CAD ; DM with hyperglycemia; CVA; hypokalemia, mild Hyponatremia, mild Discharge Disposition: Home Discharge Instruct/Medications Diet: Consistent carbohydrate, Cardiac 2g Na,low cholest Activity: No Restrictions, As Tolerated Follow Up/Referral: PCP, referral to [place] Medications: As below Discharge Statement: "Patient was advised to return to the ER or call 911 if any headaches, dizziness, shortness of breath, chest pain, abdominal pain, bleeding, fevers, or worsening of medical condition. Patient was counseled about treatment plan, medications, possible side effects, patientverbalized understanding. All questions were answered to the best of my ability. This discharge took greater then 30 minutes in planning, reviewing documentation, counseling the patient, and discussing with other team members." Date of Service: Jul 17, 2024 Billing Provider: MARY ADAN MD Common Visit Codes: [id number] DISCH DAY >30min MARY ADAN MD Jul 17, 2024 14:34
--- NOTE | 2024-07-20 07:08 | ECG ---
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
== END 2024-07-17 16:45 | disposition home or self-care (01) | DRG 177 ==
LOC: ER 10:59 → TELE 22:58 → TELE-WESTW 07-14 01:20 → WEST WING 07-16 23:46
PROVIDERS: ADMIT Nurse Practitioner Family; ATTEND Student in an Organized Health Care Education/Training Program
DX: J15.69 Pneumonia due to other Gram-negative bacteria (principal); I50.33 Acute on chronic diastolic (congestive) heart failure; J96.01 Acute respiratory failure with hypoxia; J44.1 Chronic obstructive pulmonary disease with (acute) exacerbation; N30.00 Acute cystitis without hematuria; E87.1 Hypo-osmolality and hyponatremia; E87.3 Alkalosis; J44.0 Chronic obstructive pulmonary disease with (acute) lower respiratory infection; I11.0 Hypertensive heart disease with heart failure; J15.9 Unspecified bacterial pneumonia; D50.9 Iron deficiency anemia, unspecified; E11.65 Type 2 diabetes mellitus with hyperglycemia; I34.0 Nonrheumatic mitral (valve) insufficiency; M54.9 Dorsalgia, unspecified; E11.51 Type 2 diabetes mellitus with diabetic peripheral angiopathy without gangrene; G89.29 Other chronic pain; E78.5 Hyperlipidemia, unspecified; E87.6 Hypokalemia; Z88.8 Allergy status to other drugs, medicaments and biological substances; Z88.1 Allergy status to other antibiotic agents; Z91.041 Radiographic dye allergy status; Z79.891 Long term (current) use of opiate analgesic; Z79.899 Other long term (current) drug therapy; Z86.73 Personal history of transient ischemic attack (TIA), and cerebral infarction without residual deficits; Z90.49 Acquired absence of other specified parts of digestive tract; Z90.710 Acquired absence of both cervix and uterus; Z87.891 Personal history of nicotine dependence
CPT/HCPCS: 36415; 36600; 71046; 76604; 80048; 80053; 80061; 81001; 82805; 82962; 83036; 83735; 83880; 84439; 84443; 84481; 84484; 85025; 86850; 86900; 86901; 93005; 93306; 94640; 96365; 96375; 97110; 97116; 97163; 97530; G0378; J1815; J3490